=== PATIENT | male | born 1995 | race African-American/Black ===

== ENCOUNTER 2019-11-14 08:22 | Outpatient (CLI) | payer OTHER, SELFPAY ==
--- NOTE | ~2019-11-14 | XR_ITS ---
EXAMINATION: XR small bowel follow through DATE: 11/14/2019 11:15 INDICATION: Crohn's disease with infraumbilical discomfort. TECHNIQUE: Charge Auditor radiograph(s) of the abdomen was/were obtained. Oral contrast was administered, and sequential radiographs of the abdomen were obtained until oral contrast was noted to be in the proxi mal colon. Spot fluoroscopic images of the small bowel were obtained. A total of 12 fluoroscopic imag es and 7 overhead radiographs were obtained. Fluoroscopy exposure time was 0.7 minutes. COMPARISON: None. FINDINGS: Charge Auditor radiograph demonstrates no dilated loops of bowel to suggest obstruction. Transit time from the stomach to proximal colon was approximately 1 hour and 30 minutes. There are 2 short segments of fix ed stenosis of the distal ileum located between approximately 15-25 cm proximal to the ileocecal valv e. There is additional normal narrowing in the distal 10 cm terminal ileum where there is also an irr egular mucosal contour with subtle spiculations of contrast which appear to extend into the submucosa . The location and appearance would be characteristic of given history of Crohn's disease. There is n ormal caliber and mucosal fold pattern throughout the remainder of the more proximal small bowel. No evident sinus tracts or fistulous indications between loops of bowel. IMPRESSION: 1. Nonobstructing mild strictures in the distal ileum with mucosal fissuring at the terminal ileum co nsistent with Crohn's disease. Reviewed, dictated and finalized at location A. IMPRESSION: 1. Nonobstructing mild strictures in the distal ileum with mucosal fissuring at the terminal ileum consistent with Crohn's disease.
== END 2019-11-14 08:23 | disposition home or self-care (01) ==
PROVIDERS: Visit Provider Internal Medicine Gastroenterology
DX: K50.90 Crohn's disease, unspecified, without complications (principal)
CPT/HCPCS: 74250

== ENCOUNTER 2020-02-14 10:24 | Emergency (ER) | payer OTHER, SELFPAY ==
[2020-02-14 10:28] VITALS: BP 138/85; PULSE 108; RESP 20; TEMP 36.5; O2SAT 100
[2020-02-14 10:46] LABS: Basophils Percent Auto 0.3 % (0.2-1.2); Eosinophils Absolute Auto 0.1 K/mm3 (0-0.3); Eosinophils Percent Auto 1.2 % (0-4.4); Hematocrit 33.2 % (42.0-52.0); Hemoglobin 10.1 g/dL (14.0-18.0); Immature Granulocyte Absolute 0.03 K/mm3 (0.00-0.031); Immature Granulocyte Percent A 0.4 % (0-0.5); Lymphocytes Absolute Auto 1.49 K/mm3 (0.9-3.2); Lymphocytes Percent Auto 20.3 % (18.3-44.2); Mean Corpuscular HGB Conc 30.4 g/dl (32-36); Mean Corpuscular Hemoglobin 25.1 pg (26-34); Mean Corpuscular Volume 82.4 fl (80-100); Mean Platelet Volume 9.8 fl (7.4-10.4); Monocytes Absolute Auto 0.9 K/mm3 (0.1-0.6); Monocytes Percent Auto 11.9 % (2.6-8.5); Neutrophils Absolute Auto 4.8 K/mm3 (1.3-6.7); Neutrophils Percent Auto 65.9 % (45.5-73.1); Platelet Count Result 525 k/mm3 (150-375); Red Blood Count 4.03 M/mm3 (4.6-6.20); Red Cell Distribution Width 14.7 % (11.5-14.5); White Blood Count 7.3 K/mm3 (4.5-10.0)
[2020-02-14 10:55] LABS: Alanine Aminotransferase 11 U/L (4-50); Albumin Level 3.6 g/dL (3.5-5.1); Alkaline Phosphatase 53 U/L (38-126); Anion Gap 10.7 mmol/L (7-16); Aspartate Amino Transferase 14 U/L (17-59); Bilirubin,Total 0.4 mg/dL (0.2-1.3); Blood Urea Nitrogen 11 mg/dL (9-20); Calcium 8.8 mg/dL (8.4-10.2); Carbon Dioxide 25 mmol/L (22-30); Chloride 101 mmol/L (98-107); Estimated CRCL calculation 77 ml/min; Estimated Glomerular Filt Rate > 60; Glucose 111 mg/dL (75-110); Lipase 98 U/L (23-300); Potassium 3.7 mmol/L (3.4-5.0); Sodium 133 mmol/L (137-145)
[2020-02-14 11:27] LABS: Add Urine Microscopic? YES; Appearance Urine Clear (Clear); Bacteria Urine Trace /hpf; Bilirubin Urine Negative (Negative); Blood Urine Negative (Negative); Color Urine Yellow (Yellow); Glucose Urine UA Negative (Negative); Ketones Urine Negative (Negative); Leukocyte Esterase Ur Negative LEU/UL (Negative); Mucus Urine Rare /lpf; Nitrate Urine Negative (Negative); Protein Urine Negative (Negative); RBC Urine 0-2 /hpf (0-2); Squamous Epithelial Cell Urine Rare /hpf (Few); Urobilinogen Urine Negative mg/dL (<2.0); WBC Urine 0-3 /hpf
--- NOTE | 2020-02-14 11:46 | ED.ABDPAIN ---
HPI - Abdominal Pain General Chief Complaint: Abdominal Pain <DALI Correa Last Filed: 02/14/20 13:28> Stated Complaint: crohn's flaring up <DALI Correa Last Filed: 02/14/20 13:28> Time Seen by Provider: 02/14/20 11:07 <DALI Correa Last Filed: 02/14/20 13:28> Source: patient <DALI Correa Last Filed: 02/14/20 13:28> Mode of arrival: ambulatory <DALI Correa Last Filed: 02/14/20 13:28> Limitations: no limitations <DALI Correa Last Filed: 02/14/20 13:28> History of Present Illness HPI narrative: Patient is a 24-year-old male who presents to emergency department for evaluation of abdominal pain that is in the periumbilical region and radiates outward that is been present for the last several days has been taking Levsin with some improvement which was a new prescribed medication but notes that it is no longer helping patient notes he had had an episode of emesis a few days ago. . Patient denies any rectal bleeding or melena . Patient on arrival to emergency department is in the room in no distress. Patient with history of Crohn's and is followed by Dr. Martini <DALI Correa Last Filed: 02/14/20 13:28> Related Data Home Medications: Home Medications Medication Instructions Recorded Confirmed hyoscyamine sulfate 0.375 mg 0.375 mg PO Q12H 02/01/20 02/06/20 tablet,extended release,12 hr mesalamine 250 mg 750 mg PO BID cap 02/01/20 02/06/20 capsule,controlled release <DALI Correa Last Filed: 02/14/20 13:28> Allergies/Adverse Reactions: Allergies Allergy/AdvReac Type Severity Reaction Status Date / Time No Known Allergies Allergy Verified 02/14/20 10:27 <DALI Correa Last Filed: 02/14/20 13:28> Review of Systems Review of Systems: All systems reviewed & are unremarkable except as noted in HPI and below <DALI Correa Last Filed: 02/14/20 13:28> PMFSH Past Medical History Medical History: Medical History (Updated 02/14/20 @ 13:27 by Dante Burton PA-C) Anemia Crohn's disease Urinary hesitancy <Dante Burton PA-C - Last Filed: 02/14/20 13:28> Surgical History Surgical History: Surgical History (Updated 02/14/20 @ 11:47 by Dante Burton PA-C) Hx of colonoscopy <Dante Burton PA-C - Last Filed: 02/14/20 13:28> Social History Social History: Social History Smoking status: Never smoker Second hand tobacco smoke exposure: No Alcohol intake: current Substance use: current Substance use type: marijuana Gender identity (if verbalized by the patient): Male <Dante Burton PA-C - Last Filed: 02/14/20 13:28> Exam Narrative: Exam Narrative: GENERAL: Well-appearing, well-nourished, and in no acute distress. HEAD: Normocephalic, atraumatic. EYES: PERRLA and EOMI. ENT: Nares clear, no rhinorrhea or epistaxis. Mucous membranes moist. CHEST: Clear to auscultation. No respiratory distress. No wheezes rales or rhonchi HEART: Regular rate and rhythm. No murmur heard. Normal peripheral pulses. ABDOMEN: Soft, periumbilical tenderness no rebound or guarding, nondistended EXTREMITIES: Normal range of motion. No edema. SKIN: Warm, dry, no rash. NEURO: No focal deficits. Alert and oriented x3. PSYCH: Normal mood and affect. <Dante Burton PA-C - Last Filed: 02/14/20 13:28> Course Course Emergency Course: Patient in the room at this time resting comfortably noting that he is feeling much better with interventions tolerating p.o. intake felt appropriate for outpatient reevaluation and agreeing to follow-up as directed or to return if symptoms worsen or concerns patient is afebrile nontoxic-appearing <Dante Burton PA-C - Last Filed: 02/14/20 13:28> Vital Signs Vital signs: Vital Signs Temperature 97.7 F 02/13
[2020-02-14] MEDS: SODIUM CHLORIDE 0.9% IV 1,000 ML 999 ML IV CONT (12:05)
[2020-02-14] MEDS: FAMOTIDINE 20 MG/2 ML VIAL IV PUSH (12:05)
[2020-02-14] MEDS: HYOSCYAMINE SULFATE 0.125 MG TABLET PO (12:05)
[2020-02-14 13:05] VITALS: BP 117/76; PULSE 92; RESP 16; O2SAT 100
[2020-02-14 13:37] VITALS: BP 170/100; PULSE 83; RESP 16; O2SAT 100
== END 2020-02-14 13:50 | disposition home or self-care (01) ==
PROVIDERS: Emergency Provider General Practice
DX: R10.9 Unspecified abdominal pain (principal); K50.90 Crohn's disease, unspecified, without complications
CPT/HCPCS: 36415; 80053; 81001; 83690; 85025; 96361; 96374; 99284; A9270; J7030

== ENCOUNTER 2020-02-22 13:40 | Inpatient (IN) | payer OTHER, SELFPAY ==
--- NOTE | ~2020-02-22 | CT_ITS ---
EXAMINATION: CT abdomen pelvis w con DATE: 02/22/2020 16:03 INDICATION: Abdominal pain. History of Crohn's disease. TECHNIQUE: Computed tomography (CT) of the abdomen and pelvis was performed with 100 cc Omnipaque 350 intravenous contrast. Automated exposure control and iterative reconstruction technique were employe d. Exam dose: 188.39 mGy-cm total exam DLP. COMPARISON: 11/14/2019 small bowel series FINDINGS: The lung bases are clear. Normal heart size. No pericardial or pleural effusion. There is very little body fat. There is mild ascites. No hepatic, splenic, pancreatic, adrenal or renal space-occupying mass lesion is evident. No urinary tract calculus or hydroureteronephrosis is evident. The urinary bladder is unremarkable. Normal caliber of the abdominal aorta. No intraperitoneal or retroperitoneal or pelvic mass lesion or adenopathy is evident. There is prominent mural thickening and mucosal enhancement of the distal approximately 15 cc of the ileum, consistent with active Crohn's disease. There is proximal prominent small bowel fluid distenti on and scattered air fluid levels. The small bowel measures up to approximately 4.5 cm maximal diamet er. Included skeletal structures are unremarkable. . IMPRESSION: Active Crohn's disease of the distal small bowel with proximal up to 4.5 cm small bowel dilatation, with numerous small bowel fluid distended loops and air-fluid levels Reviewed, dictated and finalized at [facility]. Reviewed, dictated and finalized at location A. IMPRESSION: Active Crohn's disease of the distal small bowel with proximal up to 4.5 cm small bowel dilatation, with numerous small bowel fluid distended loo ps and air-fluid levels
--- NOTE | ~2020-02-22 | XR_ITS ---
XR small bowel follow through DATE: 02/24/2020 14:27 INDICATION: Infraumbilical abdominal pain, especially postprandially TECHNIQUE: Serial images of the abdomen were obtained. Spot images of the terminal ileum. 1.6 minutes fluoroscopy time 12.11 DAP 18 images COMPARISON: 11/14/2019 small bowel follow-through FINDINGS: There is slow transit of contrast material through the small bowel, contrast material reach ing the colon by 6 hours. There are 2 areas of small bowel stricture and mucosal irregularity, one in the distal ileum and the other, following an intervening skip segment, at the terminal ileum. There is mild ileal dilatation p roximal to the distal ileal stricture. IMPRESSION: 2 areas of stricture or mucosal irregularity due to Crohn's disease involving distal ileu m and terminal ileum, with intervening skip segment Mild proximal small bowel dilatation up to approximately 4 cm diameter Reviewed, dictated and finalized at [facility]. Reviewed, dictated and finalized at location A. IMPRESSION: 2 areas of stricture or mucosal irregularity due to Crohn's disease involving distal ileum and terminal ileum, with intervening skip segment Mild proximal small bowel dilatation up to approximately 4 cm diameter
[2020-02-22 13:49] VITALS: BP 130/82; PULSE 106; RESP 20; TEMP 37.4; O2SAT 100
[2020-02-22 14:05] LABS: Basophils Percent Auto 0.2 % (0.2-1.2); Eosinophils Absolute Auto 0.1 K/mm3 (0-0.3); Eosinophils Percent Auto 0.8 % (0-4.4); Hematocrit 33.2 % (42.0-52.0); Immature Granulocyte Absolute 0.05 K/mm3 (0.00-0.031); Immature Granulocyte Percent A 0.4 % (0-0.5); Lymphocytes Absolute Auto 0.99 K/mm3 (0.9-3.2); Mean Corpuscular HGB Conc 30.1 g/dl (32-36); Mean Corpuscular Hemoglobin 24.3 pg (26-34); Mean Corpuscular Volume 80.6 fl (80-100); Mean Platelet Volume 9.3 fl (7.4-10.4); Monocytes Absolute Auto 0.8 K/mm3 (0.1-0.6); Monocytes Percent Auto 5.9 % (2.6-8.5); Neutrophils Absolute Auto 12.1 K/mm3 (1.3-6.7); Neutrophils Percent Auto 85.7 % (45.5-73.1); Platelet Count Result 618 k/mm3 (150-375); Red Blood Count 4.12 M/mm3 (4.6-6.20); Red Cell Distribution Width 15.3 % (11.5-14.5); White Blood Count 14.1 K/mm3 (4.5-10.0)
[2020-02-22 14:17] LABS: Alanine Aminotransferase 11 U/L (4-50); Albumin Level 3.7 g/dL (3.5-5.1); Alkaline Phosphatase 58 U/L (38-126); Anion Gap 8 mmol/L (8-16); Aspartate Amino Transferase 17 U/L (17-59); Bilirubin,Total 0.2 mg/dL (0.2-1.3); Blood Urea Nitrogen 10 mg/dL (9-20); Calcium 8.8 mg/dL (8.4-10.2); Carbon Dioxide 24 mmol/L (22-30); Chloride 102 mmol/L (98-107); Estimated CRCL calculation 77 ml/min; Estimated Glomerular Filt Rate > 60; Glucose 106 mg/dL (75-110); Lipase 88 U/L (23-300); Potassium 4.1 mmol/L (3.4-5.0); Sodium 134 mmol/L (137-145)
--- NOTE | 2020-02-22 15:13 | ED.ABDPAIN ---
HPI - Abdominal Pain General Chief Complaint: Abdominal Pain Stated Complaint: Abd pain, Crohns disease Time Seen by Provider: 02/22/20 15:07 Source: patient and family History of Present Illness HPI narrative: 24 years old -[place] male history of Crohn's disease been complaining of mid abdominal pain for months. Was seen by Dr. Toney in the last few weeks, scheduled to see him again tomorrow. Patient reports that his pain got worse over the last 24 hours. Patient reports intermittent nausea and vomiting, denies any fever, chills. Patient denies any aggravating or relieving factors. Related Data Home Medications Medication Instructions Recorded Confirmed hyoscyamine sulfate 0.375 mg 0.375 mg PO Q12H 02/01/20 02/06/20 tablet,extended release,12 hr mesalamine 250 mg 750 mg PO BID cap 02/01/20 02/06/20 capsule,controlled release Allergies Allergy/AdvReac Type Severity Reaction Status Date / Time No Known Allergies Allergy Verified 02/14/20 10:27 Review of Systems Review of Systems: Narrative: CONSTITUTIONAL: Denies fever, chills, or sweats. EYES: Denies visual changes, redness, or discharge. ENT: Denies rhinorrhea, congestion, sore throat, or otalgia. CARDIOVASCULAR: Denies chest pain, palpitations, or edema. RESPIRATORY: Denies cough or dyspnea. GASTROINTESTINAL: Denies abdominal pain, nausea, vomiting, or diarrhea. GENITOURINARY: Denies dysuria or hematuria. SKIN: Denies rash or itching. MUSCULOSKELETAL: Denies back pain, joint pain, or myalgia. NEUROLOGIC: Denies headache, numbness, or weakness. PSYCHIATRIC: Denies anxiety or depression. [facility] Past Medical History Medical History Anemia Crohn's disease Urinary hesitancy Surgical History Surgical History Hx of colonoscopy Family History Family History Father Scoliosis Mother Chronic GERD Social History Social History Smoking status: Never smoker Second hand tobacco smoke exposure: No Alcohol intake: current Substance use: current Substance use type: marijuana Gender identity (if verbalized by the patient): Male Exam Narrative: Exam Narrative: General appearance: Well-developed, well-nourished Skin: Normal color Head: Normocephalic, nontraumatic Eyes: Clear conjunctiva ENT: Oropharynx normal, ears normal, nose normal Neck: Supple, nontender Chest and respiratory: Airway patent, no respiratory distress, no accessory muscle use Heart: Regular rate/rhythm Abdomen: Soft, moderate tenderness mid abdomen,, no organomegaly, quiet bowel sounds Vascular: Normal peripheral pulses, normal capillary refill. 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[employer] is normal as tested, no gross motor deficit Course Course Emergency Course: Stable Consultations Consultation #1: DR TONEY Date: 02/22/20 Time: 17:46 Vital Signs Vital signs: Vital Signs Temperature 37.4 C 02/22/20 13:49 Pulse Rate 106 H 02/22/20 13:49 Respiratory Rate 20 02/22/20 13:49 Blood Pressure 130/82 02/22/20 13:49 Pulse Oximetry 100 02/22/20 13:49 Temperature 37.4 C 02/22/20 13:49 Pulse Rate 106 H 02/22/20 13:49 Respiratory Rate 20 02/22/20 13:49 Blood Pressure 130/82 02/22/20 13:49 Pulse Oximetry 100 02/22/20 13:49 MDM - Abdominal Pain MDM Narrative Medical decision making narrative: , History of Crohn's disease, patient does not have any blood in stool, fever or chills. Been having chron
[2020-02-22] MEDS: MORPHINE SULFATE 4 MG/ML INJ IV PUSH ×2 (15:31→22:13)
[2020-02-22] MEDS: SODIUM CHLORIDE 0.9% IV 1,000 ML 999 ML IV CONT (15:31)
[2020-02-22] MEDS: ONDANSETRON INJ 4 MG/2 ML VIAL IV PUSH (15:31)
[2020-02-22 15:37] LABS: Add Urine Microscopic? NO; Appearance Urine Clear (Clear); Bilirubin Urine Negative (Negative); Blood Urine Negative (Negative); Color Urine Straw (Yellow); Glucose Urine UA Negative (Negative); Ketones Urine Negative (Negative); Leukocyte Esterase Ur Negative LEU/UL (Negative); Nitrate Urine Negative (Negative); Protein Urine Negative (Negative); Urobilinogen Urine Negative mg/dL (<2.0)
[2020-02-22] MEDS: methylPREDNISolone SOD SUCC 125 MG VIAL 60 MG IV PUSH (17:41)
[2020-02-22 19:14] VITALS: BP 125/78; PULSE 62; RESP 18; O2SAT 100
--- NOTE | 2020-02-22 19:35 | PC.NURSE ---
This patient, Roman Metzger, was admitted to Medical Room 257-01. Patient/family oriented to hospital policies and general routines including ID bracelet, bed and alarms, visiting hours, pain management, procedures, bathroom and other care routines, personal items, smoking policy, room service/diet, and visiting hours. Valuables list has been completed. Information on how to activate the Rapid Response Team has been discussed. Patient/Family are encouraged to report perceived risks to care and to ask questions if they do not understand what they are told or what they should do.
[2020-02-22] MEDS: SODIUM CHLORIDE 0.9% IV 1,000 ML 125 ML IV CONT (19:44)
[2020-02-22 22:00] VITALS: BP 118/78; PULSE 86; RESP 18; TEMP 36.8; O2SAT 100
[2020-02-22 22:05] VITALS: BMI 15.5
[2020-02-23] VITALS: BP 118/78; PULSE 76; RESP 18; TEMP 36.8; O2SAT 100
[2020-02-23] MEDS: methylPREDNISolone SOD SUCC 40 MG VIAL IV PUSH ×5 (00:02→23:27)
[2020-02-23] MEDS: MORPHINE SULFATE 4 MG/ML INJ IV PUSH (01:18)
--- NOTE | 2020-02-23 02:30 | PM.IMHP ---
H&P: HPI History of Present Illness Date/Time: 02/23/20 02:30 Chief complaint: Adominal pain. Narrative: Roman Metzger is a very pleasant 24-year-old male diagnosed with Crohn's disease who presented to the emergency department yesterday afternoon with complaints of abdominal pain. Since about September of this year he has been having problems with his Crohn's, with increasing pain over the past 24 hours or so. He describes a severe, squeezing pain in the right mid and lower quadrant which seems to be made worse with movement and eating. Hyoscyamine has helped a little bit with his abdominal discomfort, and marijuana occasionally helps as well. Unfortunately, he has been suffering from insomnia and urinary hesitancy and on occasion retention since starting the hyoscyamine. In any event, he also has intermittent abdominal bloating, frequent nausea, and occasional emesis. It is to the point where he is almost afraid to eat as it causes pain, and he has lost 10 to 15 pounds in the last 2 months or so. He has frequent diarrhea, worse over the past 2 weeks, with his last bowel movement being at approximately 09:00 on Thursday morning. He has not been passing much gas but he has been feeling his stomach rumbling in he is hungry at the time my evaluation. Also of note, he has been having night sweats and has had intermittent fevers for the past 1 week, with a T-max of 102.3? last Thursday. He has not noticed any blood or mucus in the stool. No hematemesis. He denies chest pain and shortness of breath. Review of Systems Review of Systems: Narrative: Twelve systems were reviewed with pertinent positives and negatives as per HPI. He does suffer from seasonal allergies, and has had rhinorrhea, postnasal drip, and slight cough. No shortness of breath. He denies sick contacts and exposure to those positive for COVID-19. He has been very diligent about hand hygiene and wearing a mask, and he rarely leaves his home or has a visitors. Several weeks ago he had hemorrhoidal pain, which improved with Sitz baths and topical creams. He denies dysuria and hematuria but again reports hesitancy in feelings of incomplete bladder evacuation since starting hyoscyamine. Except as documented, all other systems were reviewed and are negative. PMFSH Past Medical History Medical History (Updated 02/23/20 @ 03:16 by Frances Rich PA-C) Chronic anemia Crohn's disease (~04/2012) Surgical History Surgical History (Updated 02/23/20 @ 03:12 by Frances Rich PA-C) History of colonoscopy Family History Family History Father Scoliosis Mother Chronic GERD Grandparent Diabetes mellitus Social History Social History (Updated 02/23/20 @ 03:13 by Frances Rich PA-C) Social History: The patient is originally from [place], [place]. 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 He does not use tobacco products. He drinks alcohol rarely, and in moderation. He does smoke marijuana, which helps with his abdominal pain. He does meets his mother, Sandrine Metzger, as his surrogate decision maker and he wishes to be a full code. Spiritual care concerns: No Meds Home Medications and Allergies Home Medications Medication Instructions Recorded Confirmed Type hyoscyamine sulfate 0.375 mg 0.375 mg PO Q12H 02/01/20 02/22/20 History tablet,extended release,12 hr mesalamine 250 mg 750 mg PO BID cap 02/01/20 02/22/20 History capsule,controlled release famotidine [Pepcid] 20 mg PO BID #7 tablet 02/14/20 02/22/20 Rx Allergies Allergy/AdvReac Type Severity Reaction Status Date / Time No Known Allergies Allergy Verified 02/14/20 10:27 Vital Signs Vital Signs - 24 hr 02/22/20 13:49 02/22/20 19:14 02/22/20 22:00 Temperature 99.3 F 98.2 F Pulse Rate 106 H 62 86 Respiratory Rate 20 18 18 Blood Pressure 130/82 125/78 118/78 Pulse Oximetry 100 100 100 02/23/20 00:0
[2020-02-23] MEDS: SODIUM CHLORIDE 0.9% IV 1,000 ML 125 ML IV CONT ×3 (03:40→23:27)
[2020-02-23 05:47] VITALS: BP 111/58; PULSE 94; RESP 18; TEMP 36.4; O2SAT 99
[2020-02-23 05:51] LABS: Basophils Percent Auto 0.1 % (0.2-1.2); Hemoglobin 9.7 g/dL (14.0-18.0); Immature Granulocyte Absolute 0.04 K/mm3 (0.00-0.031); Immature Granulocyte Percent A 0.5 % (0-0.5); Lymphocytes Absolute Auto 0.71 K/mm3 (0.9-3.2); Lymphocytes Percent Auto 8.4 % (18.3-44.2); Mean Corpuscular HGB Conc 30.3 g/dl (32-36); Mean Corpuscular Volume 79.2 fl (80-100); Mean Platelet Volume 8.9 fl (7.4-10.4); Monocytes Absolute Auto 0.1 K/mm3 (0.1-0.6); Monocytes Percent Auto 0.9 % (2.6-8.5); Neutrophils Absolute Auto 7.6 K/mm3 (1.3-6.7); Neutrophils Percent Auto 90.1 % (45.5-73.1); Platelet Count Result 565 k/mm3 (150-375); Red Blood Count 4.04 M/mm3 (4.6-6.20); Red Cell Distribution Width 15.2 % (11.5-14.5); White Blood Count 8.4 K/mm3 (4.5-10.0)
[2020-02-23 06:01] LABS: Anion Gap 9 mmol/L (8-16); Blood Urea Nitrogen 9 mg/dL (9-20); Calcium 8.7 mg/dL (8.4-10.2); Carbon Dioxide 24 mmol/L (22-30); Chloride 102 mmol/L (98-107); Estimated CRCL calculation 77 ml/min; Estimated Glomerular Filt Rate > 60; Glucose 117 mg/dL (75-110); Potassium 4.5 mmol/L (3.4-5.0); Sodium 135 mmol/L (137-145)
[2020-02-23 07:48] LABS: Iron 17 ug/dL (49-181)
[2020-02-23 07:58] LABS: Percent Iron Saturation 8 % (20-50)
[2020-02-23] MEDS: levoFLOXacin 500 MG/D5W 100 ML 500 MG/100 ML BAG 100 MG IVPB (10:20)
--- NOTE | 2020-02-23 10:41 | WPDGICN ---
Assessment and Plan Assessment and plan (1) Crohn's disease: Qualifiers: Digestive disease complication type: without complication Gastrointestinal tract location: small intestine Qualified Code(s): K50.00 - Crohn's disease of small intestine without complications Code(s): K50.90 - Crohn's disease, unspecified, without complications Status: Acute Assessment and Plan: Patient known to have Crohn's disease small-bowel disease is evident. CT scan recent small bowel ferritin series confirms several strictures in skip areas within the small bowel dilated small bowel consistent with partial obstruction. Plan is for bowel rest with liquid diet. IV Solu-Medrol supplemented with Pentasa mesalamine and now antibiotic therapy is suggested initially. Follow-up small-bowel follow-through will be obtained tomorrow. (2) MRAKUS (iron deficiency anemia): Code(s): D50.9 - Iron deficiency anemia, unspecified Status: Acute Assessment and Plan: Patient has microcytic anemia that has worsened since July of this year. Likely related to inflammation and chronic blood loss from his Crohn's disease. Plan is to check iron studies and iron replacement. GI Consult Note Consult date/time: 02/23/20 10:41 HPI: Roman Metzger is a 24 year old male Seen in evaluation at the request of the emergency room. Patient now on the hospitalist service. Patient with an underlying history of Crohn's disease. Diagnosed several years ago in [facility]. He has been maintained on Pentasa. 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 Sometimes worse after eating. Pain is been rather persistent. A recent upper GI and small-bowel follow-through revealed a series of strictures in the small bowel. Last evening in the emergency room a CT scan suggested similar findings with dilated loops of small bowel. Patient's recent medications include Pentasa supplemented with dicyclomine antispasmodic agent. He denies any weight loss. Although he has always been thin. He has had no bleeding. Bowel habits have essentially been regular. Family history is noncontributory Review of Systems Review of Systems: All systems reviewed & are unremarkable except as noted in HPI and below PMFSH Past Medical History Medical History Chronic anemia Crohn's disease (~04/2012) Surgical History Surgical History History of colonoscopy Family History Family History Father Scoliosis Mother Chronic GERD Grandparent Diabetes mellitus Social History Social History Social History: The patient is originally from [place], [place]. 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 He does not use tobacco products. He drinks alcohol rarely, and in moderation. He does smoke marijuana, which helps with his abdominal pain. He does meets his mother, Sandrine Metzger, as his surrogate decision maker and he wishes to be a full code. Spiritual care concerns: No Meds Home Medications and Allergies Home Medications Medication Instructions Recorded Confirmed Type hyoscyamine sulfate 0.375 mg 0.375 mg PO Q12H 02/01/20 02/22/20 History tablet,extended release,12 hr mesalamine 250 mg 750 mg PO BID cap 02/01/20 02/22/20 History capsule,controlled release famotidine [Pepcid] 20 mg PO BID #7 tablet 02/14/20 02/22/20 Rx Allergies Allergy/AdvReac Type Severity Reaction Status Date / Time No Known Allergies Allergy Verified 02/14/20 10:27 Vital Signs Vital Signs - 24 hr 02/22/20 13:49 02/22/20 19:14 02/22/20 22:00 Temperature 99.3 F 98.2 F Pulse Rate 106 H 62 86 Respiratory Rate 20 18 18 Blood Pressure 130/82 125/78 118/78 Pulse Ox
[2020-02-23] MEDS: ONDANSETRON INJ 4 MG/2 ML VIAL IV PUSH ×2 (12:11→21:06)
[2020-02-23] MEDS: metroNIDAZOLE 250MG/ISO 50 ML 250 MG/50 ML BAG 50 MG IVPB ×3 (12:56→23:28)
[2020-02-23 14:00] VITALS: BP 130/66; PULSE 74; RESP 21; TEMP 35.8; O2SAT 100
[2020-02-23 14:08] LABS: Glucose Point of Care 98 (65-105)
--- NOTE | 2020-02-23 15:07 | PM.IMPN ---
Progress Note: A&P Assessment and Plan (1) Terminal ileitis: Code(s): K50.00 - Crohn's disease of small intestine without complications Status: Acute Assessment and Plan: Dilated small bowel with numerous fluid distended loops and air-fluid levels noted on CT. His bloating and nausea has significantly improve thus no need for NG tube at this time. He has been started on steroids and IV fluid rehydration. Antiemetics and analgesics available as needed. Dr. Martini has been consulted and small-bowel follow-through ordered for 02/22 (2) Chronic anemia: Code(s): D64.9 - Anemia, unspecified Status: Acute Assessment and Plan: Hemoglobin and hematocrit appear stable on review of previous labs. and both from iron and TIBC or low consistent with anemia of chronic disease Subjective Date/time seen: 02/23/20 15:07 Interval history: 24-year-old black male with Crohn's disease admitted with abdominal cramping and loose stools. Had grown since 2011 this actually the 1st time he has been hospitalized for it. was having watery stools that has subsided somewhat. No rashes or other symptomatology Exam Narrative: Exam Narrative: blood pressure 130/76 pulse 74 his afebrile TGeneral: thin male in no distress. Weight: 49.3 kilograms. HEENT: PERRL, Sclerae anicteric. Oral mucosa tacky. Oropharynx clear. Neck: Supple. Respiratory: Lungs are clear to auscultation bilaterally. Cardiovascular: Regular rate and rhythm with S1-S2. Gastrointestinal: Abdomen is soft and mildly distended. He is tender to palpation the mid right and lower quadrants. No voluntary guarding or rebound tenderness. Bowel sounds are present and increasing from yesterday Skin: Warm and dry. No rash or lesions on limited exam. Extremities: No cyanosis, clubbing, or edema. Radial and pedal pulses intact. Neurological: Alert. Cranial nerves 2-12 are grossly intact. No gross focal deficits to casual conversation. Psychiatric: Pleasant and cooperative with normal mood and affect. Judgment and insight intact. Objective Data Vital Signs Vital Signs: Vital Signs - 24 hr 02/22/20 19:14 02/22/20 22:00 02/23/20 00:00 Temperature 36.8 C 36.8 C Pulse Rate 62 86 76 Respiratory Rate 18 18 18 Blood Pressure 125/78 118/78 118/78 Pulse Oximetry 100 100 100 02/23/20 05:47 02/23/20 14:00 Temperature 36.4 C L 35.8 C L Pulse Rate 94 74 Respiratory Rate 18 21 H Blood Pressure 111/58 L 130/66 Pulse Oximetry 99 100 Intake/Output Intake/Output: Intake & Output 02/20/20 02/21/20 02/22/20 02/23/20 23:59 23:59 23:59 23:59 Intake Total 1000 2950 Output Total 1100 Balance 1000 1850 Meds/Results Medications: Active Medications Generic Name Dose Route Start Last Admin Trade Name Freq PRN Reason Stop Dose Admin Hydromorphone HCl 0.5 mg 02/23/20 03:03 02/23/20 13:00 Dilaudid Inj IV PUSH 0.5 mg Q3H PRN Administration Pain Rated 7-10 Acetaminophen 1,000 mg in 100 mls @ 400 mls/hr 02/22/20 17:34 02/23/20 14:13 Ofirmev 1,000 Mg Ivpb IVPB 02/23/20 17:35 400 mls/hr Q6H PRN Administration Mild Pain (1-3) or Fever Sodium Chloride 1,000 mls @ 80 mls/hr 02/22/20 17:35 02/23/20 12:11 Normal Saline Iv IV CONT 125 mls/hr .[id number] BRYANT Administration Levofloxacin/Dextrose 500 mg in 100 mls @ 100 mls/hr 02/23/20 10:30 02/23/20 11:20 Levaquin 500 Mg/D5w 100 Ml IVPB Infused QAM BRYANT Infusion Metronidazole 250 mg in 50 mls @ 50 mls/hr 02/23/20 11:00 02/23/20 13:56 Flagyl 250 Mg/Iso Soln 50 Ml IVPB Infused Q6HR BRYANT Infusion Methylprednisolone Sodium Succinate 40 mg 02/23/20 00:00 02/23/20 12:15 Solu-Medrol IV PUSH 40 mg Q6HR BRYANT Administration Ondansetron HCl 4 mg 02/23/20 11:32 02/23/20 12:11 Zofran Inj IV PUSH
[2020-02-23 22:00] VITALS: BP 112/70; PULSE 77; RESP 18; TEMP 36.3; O2SAT 100
[2020-02-24] MEDS: metroNIDAZOLE 250MG/ISO 50 ML 250 MG/50 ML BAG 50 MG IVPB ×4 (05:26→23:24)
[2020-02-24] MEDS: methylPREDNISolone SOD SUCC 40 MG VIAL IV PUSH ×4 (05:30→23:24)
[2020-02-24] MEDS: ONDANSETRON INJ 4 MG/2 ML VIAL IV PUSH ×2 (05:30→09:30)
[2020-02-24 05:45] VITALS: BP 112/63; PULSE 79; RESP 18; TEMP 36.1; O2SAT 100
--- NOTE | 2020-02-24 07:42 | PC.NURSE ---
Patient off floor for SBFT. IV infusing.
--- NOTE | 2020-02-24 08:55 | PC.NURSE ---
Patient return from radiology per wheelchair.
[2020-02-24] MEDS: SODIUM CHLORIDE 0.9% IV 1,000 ML 125 ML IV CONT (09:08)
[2020-02-24] MEDS: levoFLOXacin 500 MG/D5W 100 ML 500 MG/100 ML BAG 100 MG IVPB (09:12)
[2020-02-24 10:46] VITALS: BMI 15.5
--- NOTE | 2020-02-24 10:48 | WPDGIPROGNO ---
Progress Note: A&P Additional Plan Patient alert and comfortable this morning. He denies any additional emesis. Denies significant abdominal pain at present. Tolerating liquid diet. Physical exam reveals patient to be alert. Vital signs stable. HEENT exam reveals him to be anicteric. Lungs are clear. Heart without murmur. Abdomen is soft scaphoid bowel sounds are present nontender with no masses noted. Labs reveal iron 17 TIBC 225 ferritin 367 consistent with anemia of chronic disease. Impression 1. Crohn's disease. 2. Small-bowel strictures. 3. Anemia of chronic disease. Plan is for small bowel series today. Otherwise continue liquid diet. Patient to be on IV steroids. Consider adding Humira or Remicade as an outpatient. Pentasa is on hold until is certain he can tolerate diet.TPMT level will be obtained (as he may require Imuran). Subjective Date/time seen: 02/24/20 10:48 Objective Data Vital Signs Vital Signs: Vital Signs - 24 hr 02/23/20 14:00 02/23/20 22:00 02/24/20 05:45 Temperature 96.5 F L 97.3 F L 97 F L Pulse Rate 74 77 79 Respiratory Rate 21 H 18 18 Blood Pressure 130/66 112/70 112/63 Pulse Oximetry 100 100 100 Intake/Output Intake/Output: Intake & Output 02/21/20 02/22/20 02/23/20 02/24/20 23:59 23:59 23:59 23:59 Intake Total 1000 4400 1540 Output Total 1900 1200 Balance 1000 2500 340 Meds/Results Medications: Active Medications Generic Name Dose Route Start Last Admin Trade Name Freq PRN Reason Stop Dose Admin Hydromorphone HCl 0.5 mg 02/23/20 03:03 02/24/20 09:32 Dilaudid Inj IV PUSH 0.5 mg Q3H PRN Administration Pain Rated 7-10 Sodium Chloride 1,000 mls @ 80 mls/hr 02/22/20 17:35 02/24/20 10:15 Normal Saline Iv IV CONT 0 mls/hr .[id number] BRYANT Infusion Levofloxacin/Dextrose 500 mg in 100 mls @ 100 mls/hr 02/23/20 10:30 02/24/20 10:15 Levaquin 500 Mg/D5w 100 Ml IVPB Infused QAM BRYANT Infusion Metronidazole 250 mg in 50 mls @ 50 mls/hr 02/23/20 11:00 02/24/20 05:26 Flagyl 250 Mg/Iso Soln 50 Ml IVPB 50 mls/hr Q6HR BRYANT Administration Methylprednisolone Sodium Succinate 40 mg 02/23/20 00:00 02/24/20 05:30 Solu-Medrol IV PUSH 40 mg Q6HR BRYANT Administration Ondansetron HCl 4 mg 02/24/20 08:57 02/24/20 09:30 Zofran Inj IV PUSH 4 mg Q4H PRN Administration Nausea And Vomiting Radiology Results: ITS Impressions Abdomen/Pelvis CT 02/22/20 16:06 IMPRESSION: Active Crohn's disease of the distal small bowel with proximal up to 4.5 cm small bowel dilatation, with numerous small bowel fluid distended loops and air-fluid levels Labs Labs: Laboratory Results - last 24 hr 02/23/20 14:05 POC Capillary Glucose 98
--- NOTE | 2020-02-24 11:17 | PCNSR ---
On 02/24/20, the student, Lion Block, provided care and completed [facility]. I have reviewed the student's documentation and agree with the findings.
--- NOTE | 2020-02-24 13:36 | PM.IMPN ---
Progress Note: A&P Assessment and Plan (1) Terminal ileitis: Code(s): K50.00 - Crohn's disease of small intestine without complications Status: Acute Assessment and Plan: Dilated small bowel with numerous fluid distended loops and air-fluid levels noted on CT. His bloating and nausea has significantly improve thus no need for NG tube at this time. He was started on steroids and IV fluid rehydration. Antiemetics and analgesics available as needed. Dr. Martini is following and small-bowel follow-through today (2) Chronic anemia: Code(s): D64.9 - Anemia, unspecified Status: Acute Assessment and Plan: Hemoglobin and hematocrit appear stable on review of previous labs. and both iron and TIBC are low consistent with anemia of chronic disease Subjective Date/time seen: 02/24/20 13:36 Interval history: Date of visit 02/23. 24-year-old black male with Crohn's disease admitted with abdominal cramping and loose stools. Has had crohn's since 2011, this actually the 1st time he has been hospitalized for it. was having watery stools that has subsided . No BMs last 24 hours. cramping better. No rashes or other symptomatology Hungry and wants to advance diet Exam Narrative: Exam Narrative: blood pressure 112/64 pulse 80 afebrile TGeneral: thin male in no distress. . HEENT: PERRL, Sclerae anicteric. Neck: Supple. Respiratory: Lungs are clear to auscultation bilaterally. Cardiovascular: Regular rate and rhythm with S1-S2. Gastrointestinal: Abdomen is soft and mildly distended. minimal tenderness if any now. No voluntary guarding or rebound tenderness. Bowel sounds are present and increasing from yesterday Skin: Warm and dry. No rash or lesions on limited exam. Extremities: No edema. Radial and pedal pulses intact. Neurological: Alert. . No gross focal deficits . Psychiatric: Pleasant and cooperative with normal mood and affect. Objective Data Vital Signs Vital Signs: Vital Signs - 24 hr 02/23/20 14:00 02/23/20 22:00 02/24/20 05:45 Temperature 35.8 C L 36.3 C L 36.1 C L Pulse Rate 74 77 79 Respiratory Rate 21 H 18 18 Blood Pressure 130/66 112/70 112/63 Pulse Oximetry 100 100 100 Intake/Output Intake/Output: Intake & Output 02/21/20 02/22/20 02/23/20 02/24/20 23:59 23:59 23:59 23:59 Intake Total 1000 4400 1640 Output Total 1900 1200 Balance 1000 2500 440 Meds/Results Medications: Active Medications Generic Name Dose Route Start Last Admin Trade Name Freq PRN Reason Stop Dose Admin Hydromorphone HCl 0.5 mg 02/23/20 03:03 02/24/20 09:32 Dilaudid Inj IV PUSH 0.5 mg Q3H PRN Administration Pain Rated 7-10 Sodium Chloride 1,000 mls @ 80 mls/hr 02/22/20 17:35 02/24/20 11:34 Normal Saline Iv IV CONT 80 mls/hr .[id number] BRYANT Infusion Levofloxacin/Dextrose 500 mg in 100 mls @ 100 mls/hr 02/23/20 10:30 02/24/20 10:15 Levaquin 500 Mg/D5w 100 Ml IVPB Infused QAM BRYANT Infusion Metronidazole 250 mg in 50 mls @ 50 mls/hr 02/23/20 11:00 02/24/20 12:33 Flagyl 250 Mg/Iso Soln 50 Ml IVPB Infused Q6HR BRYANT Infusion Methylprednisolone Sodium Succinate 40 mg 02/23/20 00:00 02/24/20 11:33 Solu-Medrol IV PUSH 40 mg Q6HR BRYANT Administration Ondansetron HCl 4 mg 02/24/20 08:57 02/24/20 09:30 Zofran Inj IV PUSH 4 mg Q4H PRN Administration Nausea And Vomiting Radiology Results: ITS Impressions Abdomen/Pelvis CT 02/22/20 16:06 IMPRESSION: Active Crohn's disease of the distal small bowel with proximal up to 4.5 cm small bowel dilatation, with numerous small bowel fluid distended loops and air-fluid levels Labs Labs: Laboratory Results - last 24 hr 02/23/20 14:05 POC Capillary Glucose 98 Quality VTE Prophylaxis VTE prophylaxis: mech
[2020-02-24 14:00] VITALS: BP 107/66; PULSE 55; RESP 17; TEMP 36.8; O2SAT 99
[2020-02-24 14:30] VITALS: BP 130/70; PULSE 74; RESP 16; TEMP 36.3; O2SAT 99
[2020-02-24 22:00] VITALS: BP 118/73; PULSE 72; RESP 16; TEMP 36.6; O2SAT 100
[2020-02-24] MEDS: SODIUM CHLORIDE 0.9% IV 1,000 ML 80 ML IV CONT (22:23)
[2020-02-25] MEDS: ONDANSETRON INJ 4 MG/2 ML VIAL IV PUSH (04:41)
[2020-02-25] MEDS: methylPREDNISolone SOD SUCC 40 MG VIAL IV PUSH ×2 (05:21→12:15)
[2020-02-25] MEDS: metroNIDAZOLE 250MG/ISO 50 ML 250 MG/50 ML BAG 50 MG IVPB ×2 (05:21→11:45)
[2020-02-25 06:00] VITALS: BP 133/76; PULSE 60; RESP 16; TEMP 36.2; O2SAT 100
[2020-02-25 06:22] LABS: Basophils Percent Auto 0.2 % (0.2-1.2); Hematocrit 28.4 % (42.0-52.0); Hemoglobin 8.4 g/dL (14.0-18.0); Immature Granulocyte Absolute 0.21 K/mm3 (0.00-0.031); Immature Granulocyte Percent A 4.3 % (0-0.5); Lymphocytes Absolute Auto 0.58 K/mm3 (0.9-3.2); Lymphocytes Percent Auto 11.9 % (18.3-44.2); Mean Corpuscular HGB Conc 29.6 g/dl (32-36); Mean Corpuscular Hemoglobin 24.1 pg (26-34); Mean Corpuscular Volume 81.6 fl (80-100); Mean Platelet Volume 9.6 fl (7.4-10.4); Monocytes Absolute Auto 0.3 K/mm3 (0.1-0.6); Monocytes Percent Auto 5.3 % (2.6-8.5); Neutrophils Absolute Auto 3.8 K/mm3 (1.3-6.7); Neutrophils Percent Auto 78.3 % (45.5-73.1); Platelet Count Result 519 k/mm3 (150-375); Red Blood Count 3.48 M/mm3 (4.6-6.20); Red Cell Distribution Width 15.6 % (11.5-14.5); White Blood Count 4.9 K/mm3 (4.5-10.0)
[2020-02-25 06:24] LABS: Anion Gap 3 mmol/L (8-16); Blood Urea Nitrogen 13 mg/dL (9-20); Calcium 8.2 mg/dL (8.4-10.2); Carbon Dioxide 27 mmol/L (22-30); Chloride 104 mmol/L (98-107); Estimated CRCL calculation 86 ml/min; Estimated Glomerular Filt Rate > 60; Glucose 109 mg/dL (75-110); Potassium 4.1 mmol/L (3.4-5.0); Sodium 134 mmol/L (137-145)
[2020-02-25] MEDS: levoFLOXacin 500 MG/D5W 100 ML 500 MG/100 ML BAG 100 MG IVPB (08:44)
--- NOTE | 2020-02-25 11:13 | WPDGIPROGNO ---
Progress Note: A&P Assessment and Plan (1) Crohn's disease: Qualifiers: Digestive disease complication type: without complication Gastrointestinal tract location: small intestine Qualified Code(s): K50.00 - Crohn's disease of small intestine without complications Code(s): K50.90 - Crohn's disease, unspecified, without complications Status: Acute Assessment and Plan: involving small bowel, SBFT reviewed consistent with same findings with 2 areas of stricture or mucosal irregularity due to Crohn's disease involving distal ileum and terminal ileum, with intervening skip segment will advance diet, if able to tolerate probably tomorrow he can go home with slow prednisone taper and then follow up with Dr Martini to discuss initiation of biologics (either remicade or humira) he is also on antibiotics he is back to baseline. (2) Terminal ileitis: Code(s): K50.00 - Crohn's disease of small intestine without complications Status: Acute (3) MARKUS (iron deficiency anemia): Code(s): D50.9 - Iron deficiency anemia, unspecified Status: Acute Assessment and Plan: chronic, monitor. Subjective Date/time seen: 02/25/20 11:13 Interval history: I am covering for Dr Martini. he is feeling better now with iv steroids, denies any nausea and no abdominal pain. Still no BM but has tolerated liquid diet. Family member is here and patient asking when he could go home. Review of Systems Review of Systems: All systems reviewed & are unremarkable except as noted in HPI and below Exam Const: General: comfortable and no acute distress HENMT: General nose exam: Normal nares present Eyes: General: appearance normal, both eyes and all related structures Neck: Neck: no JVD Resp: Auscultation: clear to auscultation bilaterally Cardio: Rate: regular rate Rhythm: regular rhythm GI: Inspection: non-distended GI Palp: Yes Soft to palpation Skin: General skin exam: normal color Neuro: General: gait normal Speech: normal speech Extrem: General: normal to inspection Psych: Mental Status: mental status grossly normal Objective Data Vital Signs Vital Signs: Vital Signs - 24 hr 02/24/20 14:00 02/24/20 14:30 02/24/20 22:00 Temperature 98.2 F 97.4 F L 97.9 F Pulse Rate 55 L 74 72 Respiratory Rate 17 16 16 Blood Pressure 107/66 130/70 118/73 Pulse Oximetry 99 99 100 02/25/20 06:00 Temperature 97.2 F L Pulse Rate 60 Respiratory Rate 16 Blood Pressure 133/76 Pulse Oximetry 100 Intake/Output Intake/Output: Intake & Output 02/22/20 02/23/20 02/24/20 02/25/20 23:59 23:59 23:59 23:59 Intake Total 1000 4400 3240 1014 Output Total 1900 1400 900 Balance 1000 2500 1840 114 Meds/Results Medications: Active Medications Generic Name Dose Route Start Last Admin Trade Name Freq PRN Reason Stop Dose Admin Hydromorphone HCl 0.5 mg 02/23/20 03:03 02/25/20 04:42 Dilaudid Inj IV PUSH 0.5 mg Q3H PRN Administration Pain Rated 7-10 Sodium Chloride 1,000 mls @ 80 mls/hr 02/22/20 17:35 02/24/20 22:23 Normal Saline Iv IV CONT 80 mls/hr .[id number] BRYANT Administration Levofloxacin/Dextrose 500 mg in 100 mls @ 100 mls/hr 02/23/20 10:30 02/25/20 09:44 Levaquin 500 Mg/D5w 100 Ml IVPB Infused QAM BRYANT Infusion Metronidazole 250 mg in 50 mls @ 50 mls/hr 02/23/20 11:00 02/25/20 06:21 Flagyl 250 Mg/Iso Soln 50 Ml IVPB Infused Q6HR BRYANT Infusion Methylprednisolone Sodium Succinate 40 mg 02/23/20 00:00 02/25/20 05:21 Solu-Medrol IV PUSH 40 mg Q6HR BRYANT Administration Ondansetron HCl 4 mg 02/24/20 08:57 02/25/20 04:41 Zofran Inj IV PUSH 4 mg Q4H PRN Administration Nausea And Vomiting Radiology Results: ITS Impressions Abdomen/Pelvis CT 02/22/20 16:06 IMPRESSION: Active Crohn's disease of the distal small bowel with proximal up to 4.5 cm small bowel dilatation, with numerous small bowel fluid distended loops and a
--- NOTE | 2020-02-25 12:20 | PC.NURSE ---
Per Dr. Beckwith, if patient tolerates soft diet he may be discharged home on prednisone taper. He will need to schedule follow up appointment with Dr. Martini.
--- NOTE | 2020-03-01 11:00 | P.DS_ITS ---
DS: Admitting Diagnosis Admitting Diagnosis Admitting Diagnosis: Adominal pain. DS: Discharge Diagnosis Discharge Diagnosis (1) Terminal ileitis: Code(s): K50.00 - Crohn's disease of small intestine without complications Status: Acute Assessment and Plan: * Dilated small bowel with numerous fluid distended loops and air-fluid levels noted on CT. His bloating and nausea has significantly improve thus no need for NG tube * He was started on steroids and IV fluid rehydration. . * Dr. Martini is following and small-bowel follow-through revealed partial SBO at ileum. Tolerated mechanical soft diet and sent home with tapering dose of steroids starting at 50mg qd and dropping 10 mg each week. will follow up as outpatient for possible remicade rx (2) Chronic anemia: Code(s): D64.9 - Anemia, unspecified Status: Acute Assessment and Plan: * Hemoglobin and hematocrit appear stable on review of previous labs. and both iron and TIBC are low consistent with anemia of chronic disease DS: Summary Hospital Course Hospital Course: 24-year-old black male with known Crohn's disease admitted with abdominal pain. Put at bowel rest and given IV steroids along with antibiotics. Symptoms improved where he was able to take mechanical soft diet and pain had subsided. Small-bowel follow-through revealed partial obstruction near terminal ileum. he was discharge on tapering doses of steroids starting at 50 mg daily and dropping 10 mg a week.. He will follow-up with for possible Remicade and infusions as an outpatient Time Spent with Patient Time attestation: Total time spent providing and/or coordinating discharge services:35 minutes Exam Narrative: Exam Narrative: condition on discharge blood pressure 130/72 pulse 66 and regular afebrile lungs clear CV regular rate rhythm abdomen soft nontender, bowel sounds normal active taking mechanical soft diet well Discharge Plan Discharge Attending physician on discharge: Sushila,Yuri J. Consulting providers: Andrey Martini ; Frances Rich ; Narinder Loza ; Jd Prasad Discharging Clinician: Yuri Conti Patient Disposition: Home, Self-Care Activity: as tolerated Diet: regular Patient Instructions: Antibiotic Form, Prednisone (By mouth), Tramadol (By mouth), Crohn Disease (DC) Stand Alone Forms: General Discharge Information Follow-up/Referrals: Andrey Martini MD [Physician] - Call for Appointment (Follow up with Dr. Martini. Call his office to schedule appointment.) Discharge Medications: New prednisone 10 mg tablet 10 mg PO DIRECTED Qty: 105 RF: 0 tramadol 50 mg tablet 50 mg PO Q6H PRN (Reason: pain) Qty: 20 RF: 0 Continued hyoscyamine sulfate 0.375 mg tablet extended release 12 hr 0.375 mg PO Q12H RF: 0 Pentasa 250 mg capsule, extended release 750 mg PO BID RF: 0 famotidine [Pepcid] 20 mg tablet 20 mg PO BID Qty: 7 RF: 0 Date of admission: 02/23/20 14:32 Primary Care Provider: Jean Claude Ventura Admitting Provider: Ute Quintanilla Discharge Date/Time: 02/25/20 13:12 Attending physician on admission: Yuri Conti Condition: Stable Quality VTE Prophylaxis VTE prophylaxis: mechanical ordered
[2020-03-04 17:51] LABS: TPMT Activity 15
== END 2020-02-25 13:12 | disposition home or self-care (01) | DRG 387 ==
LOC: ANHED 18:12 → ANH2MED 18:22
PROVIDERS: Emergency Medicine; Internal Medicine Gastroenterology; Physician Assistant; Admitting Provider Family Medicine; Emergency Provider Emergency Medicine; PCP Physician Assistant; Visit Provider Internal Medicine
DX: K50.00 Crohn's disease of small intestine without complications (principal); D50.9 Iron deficiency anemia, unspecified
CPT/HCPCS: 36415; 74177; 74250; 80048; 80053; 81003; 82657; 82728; 83540; 83550; 83690; 83735; 85025; 96361; 96365; 96367; 96374; 96375; 96376; 99285; G0378; J0131; J1170; J1956; J2270; J2405; J2920; J2930; J7030; Q9967

== ENCOUNTER 2020-04-03 10:48 | Outpatient (CLI) | payer OTHER, SELFPAY ==
[2020-04-03 11:17] LABS: Hematocrit 41.5 % (42.0-52.0); Hemoglobin 12.6 g/dL (14.0-18.0); Mean Corpuscular HGB Conc 30.4 g/dl (32-36); Mean Corpuscular Hemoglobin 26.6 pg (26-34); Mean Corpuscular Volume 87.7 fl (80-100); Mean Platelet Volume 9.1 fl (7.4-10.4); Platelet Count Result 336 k/mm3 (150-375); Red Blood Count 4.73 M/mm3 (4.6-6.20); Red Cell Distribution Width 16.4 % (11.5-14.5); White Blood Count 4.9 K/mm3 (4.5-10.0)
[2020-04-03 11:31] LABS: Alanine Aminotransferase 25 U/L (4-50); Albumin Level 4.1 g/dL (3.5-5.1); Alkaline Phosphatase 51 U/L (38-126); Anion Gap 7 mmol/L (8-16); Aspartate Amino Transferase 22 U/L (17-59); Bilirubin,Total 0.3 mg/dL (0.2-1.3); Blood Urea Nitrogen 13 mg/dL (9-20); Calcium 9.7 mg/dL (8.4-10.2); Carbon Dioxide 29 mmol/L (22-30); Chloride 100 mmol/L (98-107); Cholesterol 185 mg/dL (0-200); Estimated Glomerular Filt Rate > 60; Glucose 95 mg/dL (75-110); HDL Direct 55 mg/dL; Potassium 4.5 mmol/L (3.4-5.0); Sodium 136 mmol/L (137-145); Triglycerides 73 mg/dL (<150)
[2020-04-03 11:42] LABS: LDL Cholesterol Direct 99 mg/dL
[2020-04-03 11:59] LABS: Thyroid Stimulating Hormone 0.818 uIU/mL (0.465-4.680)
[2020-04-03 17:47] LABS: Hepatitis B Surface Antigen Negative (Negative)
== END 2020-04-03 10:49 | disposition home or self-care (01) ==
PROVIDERS: Physician Assistant; Visit Provider Internal Medicine Gastroenterology
DX: K50.90 Crohn's disease, unspecified, without complications (principal)
CPT/HCPCS: 36415; 80053; 80061; 84443; 85027; 87340

== ENCOUNTER 2021-05-22 10:31 | Outpatient (CLI) | payer OTHER, SELFPAY ==
[2021-05-25 13:59] LABS: NIL 0.03 IU/mL; Quantiferon TB Plus, 1T NEGATIVE (NEGATIVE)
== END 2021-05-22 10:32 | disposition home or self-care (01) ==
LOC: ANHLAB 10:33
PROVIDERS: PCP Physician Assistant; Visit Provider Internal Medicine Gastroenterology
DX: K50.00 Crohn's disease of small intestine without complications (principal)
CPT/HCPCS: 36415; 86480

== ENCOUNTER 2021-06-11 07:24 | Inpatient (IN) | payer OTHER, SELFPAY ==
--- NOTE | ~2021-06-11 | XR_ITS ---
EXAMINATION: XR small bowel follow through EXAM DATE: 06/12/2021 11:21 INDICATION: Crohn's disease, small bowel strictures. TECHNIQUE: [facility] Intern[employer] radiograph was acquired. Barium was administered for small bowel exam performed by radiologist Alex Childs M.D.. Spot images of the terminal ileum were acquired. Pulsed dose reductio n fluoroscopy was used with fluoroscopic time of 0.1 minutes. The DAP for this procedure was 12.2 Gy cm2. A total of 16 images obtained for the exam. Comparison is made to prior examination from 020. FINDINGS: On the 15 minute image contrast seen within the jejunum and part of the ileum, with carlos l fold pattern. On the later images, loops of ileum opacifies which have absence of normal ileal muco richard pattern. Contrast reached the colon between 1.5 and 2 hours which is a normal transit time. The t erminal ileum has a straightened rigid appearance consistent with Crohn's disease. IMPRESSION: Abnormal ileum, terminal ileum consistent with Crohn's disease. Normal transit time 1.5- 2 hours. Reviewed, dictated and finalized at location A. RIAL CONTROL SPECIALIST IMPRESSION: Abnormal ileum, terminal ileum consistent with Crohn's disease. No rmal transit time 1.5-2 hours.
--- NOTE | ~2021-06-11 | CT_ITS ---
EXAMINATION: CT abdomen pelvis w con DATE: 06/11/2021 09:34 INDICATION: Abdominal pain TECHNIQUE: Computed tomography (CT) of the abdomen and pelvis was performed with 100 mL Omnipaque-350 intravenous contrast. Automated exposure control and iterative reconstruction technique were employe d. The dose-length product was 217.94 mGy-cm. COMPARISON: 02/22/2020 FINDINGS: Lung bases are clear. Heart size is normal. No pericardial or pleural effusion. Focal hepatic steatos is ligamentum teres. Liver, spleen, pancreas, bilateral adrenal glands and kidneys are normal. Normal retrocecal appendix. Fluid throughout the colon consistent with diarrhea. No bowel obstruction. Prom inent enhancing wall thickening along an approximately 20 cm length of distal ileum sparing the 10 cm proximal to the ileocecal valve. There is approximately 1.8 x 1.2 x 1.8 cm peripherally enhancing fl uid collection along the posterior inferior margin of the affected small bowel which could represent a small abscess or diverticulum. There is additional asymmetric wall thickening along the distal sigm oid colon were closely approaches the affected segment of ileum. There is a small focus of gas periph eral to the enhancing mucosa in the region of the sigmoid wall thickening. Findings suggest a develop ing enterocolonic fistula. Small amount of ascites in the deep pelvis. No free intraperitoneal gas or larger drainable abscess. Bladder is normal. Surgical clip in the anterior right hemipelvis. No path ologically enlarged abdominal or pelvic lymphadenopathy. Bones are unremarkable. IMPRESSION: 1. Segmental enterocolitis consistent with acute flare of reported Crohn's disease. This involves a s egment of distal ileum and a short segment of the immediately adjacent sigmoid colon with very small abscesses versus diverticulum along the affected loop of ileum as well as a possible developing enter ocolic fistula. Reviewed, dictated and finalized at location A. RAL O[employer] PROCESSING LABOURER IMPRESSION: 1. Segmental enterocolitis consistent with acute flare of reported Crohn's dise ase. This involves a segment of distal ileum and a short segment of the immedia tely adjacent sigmoid colon with very small abscesses versus diverticulum along the affected loop of ileum as well as a possible developing enterocolic fistul a.
[2021-06-11 07:37] VITALS: BP 132/97; PULSE 108; RESP 14; O2SAT 100
[2021-06-11 07:50] LABS: Basophils Percent Auto 0.2 % (0.2-1.2); Eosinophils Percent Auto 0.2 % (0-4.4); Hematocrit 42.6 % (42.0-52.0); Hemoglobin 13.5 g/dL (14.0-18.0); Immature Granulocyte Absolute 0.07 K/mm3 (0.00-0.031); Immature Granulocyte Percent A 0.5 % (0-0.5); Lymphocytes Absolute Auto 2.12 K/mm3 (0.9-3.2); Lymphocytes Percent Auto 16.1 % (18.3-44.2); Mean Corpuscular HGB Conc 31.7 g/dl (32-36); Mean Corpuscular Hemoglobin 28.7 pg (26-34); Mean Corpuscular Volume 90.4 fl (80-100); Mean Platelet Volume 9.9 fl (7.4-10.4); Monocytes Absolute Auto 1.2 K/mm3 (0.1-0.6); Monocytes Percent Auto 9.4 % (2.6-8.5); Neutrophils Absolute Auto 9.7 K/mm3 (1.3-6.7); Neutrophils Percent Auto 73.6 % (45.5-73.1); Platelet Count Result 585 k/mm3 (150-375); Red Blood Count 4.71 M/mm3 (4.6-6.20); Red Cell Distribution Width 12.2 % (11.5-14.5); White Blood Count 13.2 K/mm3 (4.5-10.0)
[2021-06-11 08:00] LABS: Alanine Aminotransferase 15 U/L (4-50); Albumin Level 4.5 g/dL (3.5-5.1); Alkaline Phosphatase 71 U/L (38-126); Anion Gap 14 mmol/L (8-16); Aspartate Amino Transferase 20 U/L (17-59); Bilirubin,Total 0.7 mg/dL (0.2-1.3); Blood Urea Nitrogen 13 mg/dL (9-20); Calcium 9.6 mg/dL (8.4-10.2); Carbon Dioxide 28 mmol/L (22-30); Chloride 96 mmol/L (98-107); Estimated CRCL calculation 85 ml/min; Estimated Glomerular Filt Rate > 60; Glucose 104 mg/dL (65-110); Lipase 59 U/L (23-300); Potassium 3.1 mmol/L (3.4-5.0); Sodium 138 mmol/L (137-145)
[2021-06-11 08:13] LABS: Add Urine Microscopic? YES; Appearance Urine Cloudy (Clear); Bilirubin Urine 1+ (Negative); Blood Urine Negative (Negative); Color Urine Amber (Yellow); Glucose Urine UA Negative (Negative); Ketones Urine Negative (Negative); Leukocyte Esterase Ur Negative LEU/UL (Negative); Mucus Urine Heavy /lpf; Nitrate Urine Negative (Negative); Protein Urine 2+ mg/dL (Negative)
[2021-06-11 08:18] LABS: Specific Grav Ur 1.049 (1.001-1.035)
--- NOTE | 2021-06-11 09:11 | ED.GENADULT ---
HPI - General Adult General Chief complaint: Abdominal Pain Stated complaint: Chron's Flare-up Time Seen by Provider: 06/11/21 08:59 Source: patient History of Present Illness HPI narrative: Patient is a 26 y/o male complaining of generalized abdominal pain since midnight. He describes his pain as sharp and rates it as 10/10. There is no pain radiation, no alleviating or exacerbating factor. He has some vomiting and diarrhea. He has history of Crohn's. He was on Humira but has not been getting it recently due to problem with insurance coverage. Related Data Allergies Allergy/AdvReac Type Severity Reaction Status Date / Time No Known Allergies Allergy Verified 06/05/21 10:12 Review of Systems Constitutional: Constitutional: Denies chills, Denies fever(s), Denies headache(s) and Denies weakness Eyes: Eyes: Denies blurry vision ENT: Denies headache(s) and Denies neck pain Cardiovascular: Cardiovascular: Denies chest pain and Denies dyspnea Respiratory: Respiratory: Denies cough and Denies dyspnea Gastrointestinal: Gastrointestinal: Reports abdominal pain, Reports diarrhea, Reports nausea and Reports vomiting Genitourinary: Genitourinary: Denies hematuria and Denies dysuria Musculoskeletal: Musculoskeletal: Denies back pain and Denies neck pain Neurologic: Denies headache(s) and Denies weakness PMFSH Past Medical History Medical History (Updated 06/11/21 @ 12:13 by Melinda Christensen MD) Chronic anemia Crohn's disease (~04/2012) Surgical History Surgical History History of colonoscopy Family History Family History Father Scoliosis Mother Chronic GERD Grandparent Diabetes mellitus Social History Social History Social History: The patient is originally from [place], [place]. 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 He does not use tobacco products. He drinks alcohol rarely, and in moderation. He does smoke marijuana, which helps with his abdominal pain. He does meets his mother, Sandrine Metzger, as his surrogate decision maker and he wishes to be a full code. Alcohol use details: [facility] Spiritual care concerns: No Exam Const: General: no acute distress and well developed Orientation/consciousness: oriented to person, oriented to place, oriented to time and patient oriented x3 HENMT: Head: normocephalic Ears: external ears normal General nose exam: Normal external nose present Eyes: General: appearance normal, both eyes and all related structures Conjunctivae: conjunctivae normal Neck: Neck: normal visual inspection and full ROM Chest: Chest palpation & inspection: normal inspection of the chest and no tenderness Resp: Effort & Inspection: normal respiratory effort Auscultation: clear to auscultation bilaterally Cardio: Rate: tachycardic Rhythm: regular rhythm GI: GI Palp: Yes abdominal tenderness (left lower abdomen) and Yes Soft to palpation Skin: General skin exam: normal color and turgor normal Neuro: General: oriented to person, oriented to place, oriented to time and patient oriented x3 Cognition (Neuro): normal cognition Extrem: General: normal to inspection, full ROM and no pedal edema Psych: Appearance: grossly normal Mental Status: mental status grossly normal Affect: normal affect Course Consultations Consultation #1: Discussed with Dr. Quintanilla, who agrees to admit. Date: 06/11/21 Time: 10:19 Consultation #2: Discussed with Dr. Martini, who agrees to consult. Date: 06/11/21 Time: 10:58 Vital Signs Vital signs: Vital Signs Pulse Rate 108 H 06/11/21 07:37 Respiratory Rate 14 06/11/21 07:37 Blood Pressure 132/97 H 06/11/21 07:37 Pulse Oximetry 100 06/11/21 07:37 Pulse Rate 108 H 06/11/21 07:37 Respiratory Rate 14 06/11/21 07:37 Blood Pressure 132/97 H 06/11/21 07:3
[2021-06-11 10:11] LABS: CRP 4.8 mg/dL (<1.0)
[2021-06-11] MEDS: metroNIDAZOLE 250 MG TABLET 500 MG PO (10:19)
[2021-06-11 10:21] LABS: Erythrocyte Sedimentation Rate 16 mm/hr (0-20)
[2021-06-11] MEDS: POTASSIUM CHLORIDE 20 MEQ TABLET 40 MEQ PO (12:55)
--- NOTE | 2021-06-11 12:59 | WPDGICN ---
Assessment and Plan Assessment and plan (1) Crohn's disease: Qualifiers: Digestive disease complication type: without complication Gastrointestinal tract location: small intestine Qualified Code(s): K50.00 - Crohn's disease of small intestine without complications Code(s): K50.90 - Crohn's disease, unspecified, without complications Status: Acute Assessment and Plan: Patient known to have Crohn's disease. Several small bowel strictures in skip lesions are evident on most recent small-bowel series last year. Now with increasing abdominal pain likely related to these strictures. He has not been taking Humira for several months. Only on prednisone at a low dose for the last 1 week. Plan to limit diet. And then advanced slowly to a low residue diet. IVC antibiotics will continue as well as IV steroids. Pentasa will be utilized until Humira can be restarted. We may need to add Imuran if Humira is not able to be restarted. (2) Abnormal CT scan: Code(s): R93.89 - Abnormal findings on diagnostic imaging of other specified body structures Status: Acute Assessment and Plan: CT scan raises the question of infetion in the area adjacent to the terminal ileum. A cannot exclude a fistula formation in this area. Plan is for IV antibiotics and steroids. (3) Leukocytosis: Code(s): D72.829 - Elevated white blood cell count, unspecified Status: Acute Assessment and Plan: Elevated white count noted in the ER is very minimal may be related to recent steroid use. Cannot exclude relation to active inflammation or infection. Steroid induced leukocytosis felt most likely. GI Consult Note Consult date/time: 06/11/21 12:59 HPI: Roman Metzger is a 26 year old male I am asked to see because of Crohn's disease. Patient known to have Crohn's disease for several years. Hospitalized 1 year ago at which time small-bowel series confirm several strictures in the small bowel. Patient had been treated with Humira since that time although apparently his medications has elapsed. He has not taken this medication for several months. He began to notice increasing upper abdominal pain. This notice more noticeably after eating. Was seen in my office 1 week ago: Started add on prednisone. States over the last week no change in pain has been noticed. He presented to the ER today where a CT scan suggest inflammation in the ileum with possibility of a colonic abscess , or diverticulum, or fistula. Review of Systems Review of Systems: All systems reviewed & are unremarkable except as noted in HPI and below PMFSH Past Medical History Medical History (Updated 06/11/21 @ 13:01 by Andrey Martini MD) Chronic anemia Crohn's disease (~04/2012) Surgical History Surgical History History of colonoscopy Family History Family History Father Scoliosis Mother Chronic GERD Grandparent Diabetes mellitus Social History Social History Social History: The patient is originally from [place], [place]. 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 He does not use tobacco products. He drinks alcohol rarely, and in moderation. He does smoke marijuana, which helps with his abdominal pain. He does meets his mother, Sandrine Metzger, as his surrogate decision maker and he wishes to be a full code. [facility] use details: [facility] Spiritual care concerns: No Meds Home Medications and Allergies Home Medications Medication Instructions Recorded Confirmed Type adalimumab 40 mg/0.8 mL See Rx Instructions SUBCUT 03/07/21 06/05/21 Rx subcutaneous pen kit .COMPLEX #2 ea prednisone 5 mg tablet 20 mg PO DAILY #100 tablet 06/05/21 06/05/21 Rx Allergies Allergy/AdvReac Type Severity Reaction Status Date / Time No Sunny
--- NOTE | 2021-06-11 13:30 | PM.IMHP ---
H&P: HPI History of Present Illness Date/Time: 06/11/21 13:30 Chief Complaint: Abdominal pain. Narrative: This is a very pleasant 26-year-old male with Crohn's disease who presented to the emergency department earlier today for evaluation of abdominal pain. He is known to myself and the hospitalist service from an admission in February 2020 at which time he was treated for a Crohn's flare. Small-bowel series confirmed several strictures in the small bowel and he has been treated with Humira since that time with good response. Unfortunately he has run into issues with his insurance and he has been off of Humira for several months. Since that time he has had increasing abdominal pain which has been much more severe in the last week and he was started on prednisone per Dr. Martini. He describes a cramping and occasionally sharp shooting pain in the periumbilical region, worse with eating and palpation. Unfortunately he has not had any improvement in his symptoms and his pain is worsening and he has also had several episodes of nausea and vomiting. He also reports passing approximately for small, loose stools a day. He denies fever, chills, and sweats. He has not noticed any blood or mucus in the stool. Review of Systems Review of Systems: Twelve systems were reviewed. No recent cold or flu symptoms. He denies sick contacts. No cough or shortness of breath. No dysuria hematuria. Except as documented, all other systems were reviewed and are negative. [facility] Past Medical History Medical History (Updated 06/11/21 @ 19:42 by Frances Rich PA-C) Anxiety Attention deficit hyperactivity disorder Chronic anemia Crohn's disease (~04/2012) Surgical History Surgical History History of colonoscopy Family History Family History Father Scoliosis Mother Chronic GERD Grandparent Diabetes mellitus Social History Social History (Updated 06/11/21 @ 19:35 by Frances Rich PA-C) Social History: The patient is originally from [place], [place]. 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 He does not use tobacco products. He drinks alcohol rarely, and in moderation. He does smoke marijuana, which helps with his abdominal pain. He does meets his mother, Sandrine Metzger, as his surrogate decision maker and he wishes to be a full code. Meds Home Medications and Allergies Home Medications Medication Instructions Recorded Confirmed Type adalimumab 40 mg/0.8 mL See Rx Instructions SUBCUT 03/07/21 06/05/21 Rx subcutaneous pen kit .COMPLEX #2 ea prednisone 5 mg tablet 20 mg PO DAILY #100 tablet 06/05/21 06/05/21 Rx Allergies Allergy/AdvReac Type Severity Reaction Status Date / Time No Known Allergies Allergy Verified 06/05/21 10:12 Vital Signs Vital Signs - 24 hr 06/11/21 07:37 Pulse Rate 108 H Respiratory Rate 14 Blood Pressure 132/97 H Pulse Oximetry 100 Exam Narrative: General: Well-developed male lying in bed. Nontoxic in appearance. Weight: 61 kg. BMI: 19.9. HEENT: PERRL, EOMI. Sclerae anicteric. Tacky mucous membranes. Oropharynx clear. Neck: Supple. Respiratory: Lungs are clear to auscultation bilaterally. Cardiovascular: Regular rate and rhythm with S1-S2. Gastrointestinal: Abdomen is soft and nondistended with positive bowel sounds. He is tender to palpation in the periumbilical region. No guarding or rebound tenderness. Skin: Warm and dry. No rash or lesions on limited exam. Extremities: No cyanosis, clubbing, or edema. Radial and pedal pulses intact. Neurological: Alert. Cranial nerves 2-12 are grossly intact. No gross focal deficits to casual conversation. Psychiatric: Pleasant and cooperative with normal mood and affect. Judgment and insight intact. H&P: Results Labs Labs: Short CBC 06/11/21 Range/Units 07:40 WBC 13.2 H (4.5-10.0) K/mm3 Hgb 13.5 L
[2021-06-11 15:15] VITALS: BP 123/82; PULSE 87; RESP 16
[2021-06-11] MEDS: MORPHINE SULFATE (*CRX) 2 MG/ML INJ IV PUSH ×2 (15:34→19:33)
[2021-06-11] MEDS: methylPREDNISolone SOD SUCC 40 MG VIAL IV PUSH ×2 (15:34→21:22)
[2021-06-11] MEDS: MESALAMINE 250 MG CAP CR 1000 MG PO ×2 (19:15→21:22)
[2021-06-11 19:16] VITALS: BP 110/63; PULSE 82; RESP 16
--- NOTE | 2021-06-11 19:47 | PC.NURSE ---
called to give report, nurse states that nisa is in with another patient and that she will call me back.
[2021-06-11] MEDS: SODIUM CHLORIDE 0.9% IV 1,000 ML 75 ML IV CONT (21:01)
--- NOTE | 2021-06-11 21:07 | ADMGEN ---
This patient, Roman Metzger, was admitted to Medical Room 249-01. Patient/family oriented to hospital policies and general routines including ID bracelet, bed and alarms, visiting hours, pain management, procedures, bathroom and other care routines, personal items, smoking policy, room service/diet, and visiting hours. Information on how to activate the Rapid Response Team has been discussed. Patient/Family are encouraged to report perceived risks to care and to ask questions if they do not understand what they are told or what they should do.
[2021-06-11 21:17] VITALS: PULSE 82; RESP 16; O2SAT 100
[2021-06-11 21:24] VITALS: BP 118/72; PULSE 75; RESP 18; TEMP 37.1; O2SAT 100; BMI 17.8
[2021-06-11] MEDS: HYDROmorphone HCL INJ (*CRX) 1 MG/ML SYR 0.5 MG IV PUSH (21:38)
[2021-06-12] MEDS: MORPHINE SULFATE (*CRX) 2 MG/ML INJ IV PUSH ×5 (01:22→23:35)
[2021-06-12 03:12] VITALS: BP 111/68; PULSE 80; RESP 18; TEMP 36.1; O2SAT 100
[2021-06-12] MEDS: methylPREDNISolone SOD SUCC 40 MG VIAL IV PUSH ×3 (05:41→21:00)
[2021-06-12 05:52] LABS: Hematocrit 37.2 % (42.0-52.0); Hemoglobin 11.7 g/dL (14.0-18.0); Mean Corpuscular HGB Conc 31.5 g/dl (32-36); Mean Corpuscular Hemoglobin 28.2 pg (26-34); Mean Corpuscular Volume 89.6 fl (80-100); Mean Platelet Volume 9.8 fl (7.4-10.4); Platelet Count Result 499 k/mm3 (150-375); Red Blood Count 4.15 M/mm3 (4.6-6.20); Red Cell Distribution Width 12.1 % (11.5-14.5); White Blood Count 9.9 K/mm3 (4.5-10.0)
[2021-06-12 06:05] LABS: Alanine Aminotransferase 8 U/L (4-50); Albumin Level 3.9 g/dL (3.5-5.1); Alkaline Phosphatase 52 U/L (38-126); Anion Gap 6 mmol/L (8-16); Aspartate Amino Transferase 16 U/L (17-59); Bilirubin,Total 0.6 mg/dL (0.2-1.3); Blood Urea Nitrogen 7 mg/dL (9-20); Calcium 9.2 mg/dL (8.4-10.2); Carbon Dioxide 29 mmol/L (22-30); Chloride 98 mmol/L (98-107); Estimated CRCL calculation 77 ml/min; Estimated Glomerular Filt Rate > 60; Glucose 126 mg/dL (65-110); Magnesium 1.9 mg/dL (1.6-2.3); Potassium 4.6 mmol/L (3.4-5.0); Sodium 133 mmol/L (137-145)
--- NOTE | 2021-06-12 07:34 | WPDGIPROGNO ---
Progress Note: A&P Assessment and Plan (1) Crohn's disease: Qualifiers: Digestive disease complication type: without complication Gastrointestinal tract location: small intestine Qualified Code(s): K50.00 - Crohn's disease of small intestine without complications Code(s): K50.90 - Crohn's disease, unspecified, without complications Status: Acute Assessment and Plan: Patient with established diagnosis of Crohn's disease admitted with what appears to be a flare of disease. He has several skip lesions with small-bowel stricture ring. CT scan suggest he may have shelley ileus abscesses. Fistula cannot be excluded. Plan is for small-bowel series to reassess the degree of stricture ring. Also to establish whether fistulas present. He will currently be maintained on antibiotic therapy. Steroids have been re-enter the mid. He previously was on Humira and this will need to be reestablished. Surgery may be required if abscess is failed to review response to antibiotic therapy however avoiding surgery would be best if possible. Will continue liquid diet until small-bowel series is obtain. (2) Intra-abdominal abscess: Code(s): K65.1 - Peritoneal abscess Status: Acute Assessment and Plan: very small abdomen abscess described on x-ray. Likely related to inflammation of his Crohn's disease. Currently on antibiotic therapy. At present feels surgery may not be necessary for this Subjective Date/time seen: 06/12/21 07:34 Patient reports he is only obtained pain control with morphine. No emesis or vomiting. Apparently has had bowel movements. No fever reported. Review of Systems Review of Systems: All systems reviewed & are unremarkable except as noted in HPI and below Exam Narrative: Physical exam reveals patient be alert comfortable at rest. HEENT exam reveals no icterus. Lungs are clear to auscultation percussion. Heart is without murmur or extra sounds. Abdominal exam bowel sounds are present soft flat nontender with no organomegaly. He did receive a pain injection about 1-2 hours prior to exam. Extremities are without clubbing cyanosis or edema. Objective Data Vital Signs Vital Signs: Vital Signs - 24 hr 06/11/21 07:37 06/11/21 15:15 06/11/21 19:16 Temperature Pulse Rate 108 H 87 82 Respiratory Rate 14 16 16 Blood Pressure 132/97 H 123/82 110/63 Pulse Oximetry 100 06/11/21 21:17 06/11/21 21:24 06/12/21 03:12 Temperature 98.7 F 96.9 F L Pulse Rate 82 75 80 Respiratory Rate 16 18 18 Blood Pressure 118/72 111/68 Pulse Oximetry 100 100 100 Intake/Output Intake/Output: Intake & Output 06/09/21 06/10/21 06/11/21 06/12/21 23:59 23:59 23:59 23:59 Intake Total 50 50 Balance 50 50 Meds/Results Medications: Active Medications Generic Name Dose Route Start Last Admin Trade Name Freq PRN Reason Stop Dose Admin Sodium Chloride 1,000 mls @ 75 mls/hr 06/11/21 10:30 06/11/21 21:01 Normal Saline Iv IV CONT 75 mls/hr .[id number] BRYANT Administration Piperacillin/Tazobactam/Dextrose 3.375 gm in 50 mls @ 100 mls/hr 06/12/21 02:00 06/12/21 01:52 Zosyn 3.375 Gm/D5w 50ml Pm IVPB Infused Q6H BRYANT Infusion Mesalamine 1,000 mg 06/11/21 17:00 06/11/21 21:22 Mesalamine 250 Mg Cap Cr PO 1,000 mg QID BRYANT Administration Methylprednisolone Sodium Succinate 40 mg 06/11/21 14:00 06/12/21 05:41 Methylprednisolone Sod Succ 40 Mg Vial IV PUSH 40 mg Q8HR BRYANT Administration Morphine Sulfate 2 mg 06/11/21 13:35 06/12/21 05:43 Morphine Sulfate (*Crx) 2 Mg/Ml Inj IV PUSH 2 mg Q4H PRN Administration Pain Rated 7-10 Radiology Results: ITS Impressions Abdomen/Pelvis CT 06/11/21 09:39 IMPRESSION: 1. Segmental enterocolitis consistent with acute flare of reported Crohn's disease. This involves a segment of distal ileum and a short segment of the immediately adjacent sigmoid colon with very small abscesses versus
--- NOTE | 2021-06-12 08:43 | PM.IMPN ---
Progress Note: A&P Assessment and Plan (1) Crohn's colitis: Qualifiers: Digestive disease complication type: with abscess Qualified Code(s): K50.114 - Crohn's disease of large intestine with abscess Code(s): K50.10 - Crohn's disease of large intestine without complications Status: Acute Assessment and Plan: continue steroids, antibiotics, and mesalamine per Dr. Martini. no change (2) Abnormal CT scan: Code(s): R93.89 - Abnormal findings on diagnostic imaging of other specified body structures Status: Acute Assessment and Plan: CT scan shows a very small abscess versus diverticulum along the affected loop of ileum as well as possible developing enterocolic fistula. He has been started on Zosyn per antibiotic stewardship recommendations. pending small-bowel follow-through x-ray. (3) Chronic anemia: Code(s): D64.9 - Anemia, unspecified Status: Acute Assessment and Plan: Hemoglobin is stable on review of previous labs. (4) Hypokalemia: Code(s): E87.6 - Hypokalemia Status: Acute Assessment and Plan: Potassium monitor CMP Subjective Date/time seen: 06/12/21 08:43 Interval history: Patient seen and examined Patient feels weak he still have episodes of abdominal pain pending GI follow-through x-ray Patient denies fever headache chest pain shortness of breath I am seeing the patient for enterocolitis Exam Narrative: Alert Chest no wheeze crackles Abdomen positive tenderness no rebound no guarding CVS S1 + S2 Lower extremity edema Objective Data Vital Signs Vital Signs: Vital Signs - 24 hr 06/11/21 15:15 06/11/21 19:16 06/11/21 21:17 Temperature Pulse Rate 87 82 82 Respiratory Rate 16 16 16 Blood Pressure 123/82 110/63 Pulse Oximetry 100 06/11/21 21:24 06/12/21 03:12 Temperature 98.7 F 96.9 F L Pulse Rate 75 80 Respiratory Rate 18 18 Blood Pressure 118/72 111/68 Pulse Oximetry 100 100 Intake/Output Intake/Output: Intake & Output 06/09/21 06/10/21 06/11/21 06/12/21 23:59 23:59 23:59 23:59 Intake Total 50 50 Balance 50 50 Meds/Results Medications: Active Medications Generic Name Dose Route Start Last Admin Trade Name Freq PRN Reason Stop Dose Admin Enoxaparin Sodium 40 mg 06/12/21 09:00 Enoxaparin 40 Mg/0.4 Ml Syringe SUB-Q DAILY BRYANT Sodium Chloride 1,000 mls @ 75 mls/hr 06/11/21 10:30 06/11/21 21:01 Normal Saline Iv IV CONT 75 mls/hr .[id number] BRYANT Administration Piperacillin/Tazobactam/Dextrose 3.375 gm in 50 mls @ 100 mls/hr 06/12/21 02:00 06/12/21 08:14 Zosyn 3.375 Gm/D5w 50ml Pm IVPB 100 mls/hr Q6H BRYANT Administration Mesalamine 1,000 mg 06/11/21 17:00 06/11/21 21:22 Mesalamine 250 Mg Cap Cr PO 1,000 mg QID BRYANT Administration Methylprednisolone Sodium Succinate 40 mg 06/11/21 14:00 06/12/21 05:41 Methylprednisolone Sod Succ 40 Mg Vial IV PUSH 40 mg Q8HR BRYANT Administration Morphine Sulfate 2 mg 06/11/21 13:35 06/12/21 05:43 Morphine Sulfate (*Crx) 2 Mg/Ml Inj IV PUSH 2 mg Q4H PRN Administration Pain Rated 7-10 Radiology Results: ITS Impressions Abdomen/Pelvis CT 06/11/21 09:39 IMPRESSION: 1. Segmental enterocolitis consistent with acute flare of reported Crohn's disease. This involves a segment of distal ileum and a short segment of the immediately adjacent sigmoid colon with very small abscesses versus diverticulum along the affected loop of ileum as well as a possible developing enterocolic fistula. Labs Labs: Laboratory Results - last 24 hr 06/11/21 06/11/21 06/12/21 09:45 09:45 05:24 WBC 9.9 RBC 4.15 L Hgb 11.7 L Hct 37.2 L MCV 89.6 MCH 28.2 MCHC 31.5 L RDW 12.1 Plt Count 499 H MPV 9.8 ESR 16 Sodium Potassium Chloride Carbon Dioxide Anion Gap BUN Creatinine Estim Creat Clear Calc Estimated GFR
[2021-06-12] MEDS: SODIUM CHLORIDE 0.9% IV 1,000 ML 75 ML IV CONT (11:30)
[2021-06-12] MEDS: ENOXAPARIN 40 MG/0.4 ML SYRINGE SUB-Q (11:31)
[2021-06-12] MEDS: MESALAMINE 250 MG CAP CR 1000 MG PO ×3 (11:31→20:13)
[2021-06-12 14:00] VITALS: BP 119/76; PULSE 137; RESP 16; TEMP 36.7; O2SAT 99
[2021-06-12 14:05] VITALS: PULSE 80
[2021-06-12 14:47] VITALS: BMI 17.7
[2021-06-12] MEDS: SIMETHICONE 80 MG TAB.CHEW PO (17:08)
[2021-06-12 19:51] VITALS: BP 105/52; PULSE 84; RESP 16; TEMP 36.6; O2SAT 100
[2021-06-12 20:00] VITALS: PULSE 84; RESP 16; O2SAT 100
[2021-06-13] MEDS: SODIUM CHLORIDE 0.9% IV 1,000 ML 75 ML IV CONT ×2 (02:54→17:05)
[2021-06-13] MEDS: SIMETHICONE 80 MG TAB.CHEW PO ×4 (02:54→21:39)
[2021-06-13 04:02] VITALS: BP 122/75; PULSE 63; RESP 17; TEMP 36.4; O2SAT 100
[2021-06-13] MEDS: methylPREDNISolone SOD SUCC 40 MG VIAL IV PUSH (05:56)
[2021-06-13] MEDS: MORPHINE SULFATE (*CRX) 2 MG/ML INJ IV PUSH ×2 (07:29→22:36)
--- NOTE | 2021-06-13 08:23 | WPDGIPROGNO ---
Progress Note: A&P Assessment and Plan (1) Crohn's disease: Qualifiers: Digestive disease complication type: without complication Gastrointestinal tract location: small intestine Qualified Code(s): K50.00 - Crohn's disease of small intestine without complications Code(s): K50.90 - Crohn's disease, unspecified, without complications Status: Acute Assessment and Plan: Patient with Crohn's disease. Small-bowel follow-through x-ray reveals terminal ileal changes consistent with Crohn's disease. No significant stricture ring at present. No obvious fistula formation. Plan to advance slowly to low residue diet. Try to diminish pain injections. Increase activity. Continue oral medications. Humira previously prescribed will be started as soon as insurance approval is obtained. This can be done as an outpatient. (2) Abnormal CT scan: Code(s): R93.89 - Abnormal findings on diagnostic imaging of other specified body structures Status: Acute Assessment and Plan: CT scan suggest the possibility of small abscess adjacent to the small bowel. This is not a certainty. Will continue trial of antibiotics. Changed to p.o. medications if diet is tolerated. Need to diminished pain injections if others agree. Subjective Date/time seen: 06/13/21 08:23 Patient still complains rather vague abdominal pain. Still requesting morphine regularly. He states his bowel habits are normal. Tolerating sips of liquids without difficulty. No fever. Review of Systems Review of Systems: All systems reviewed & are unremarkable except as noted in HPI and below Exam Narrative: Physical exam reveals patient be alert and afebrile. Vital signs stable. HEENT exam reveals no icterus. Lungs are clear. Heart without murmur. Abdomen bowel sounds are present soft no localized tenderness. Objective Data Vital Signs Vital Signs: Vital Signs - 24 hr 06/12/21 14:00 06/12/21 14:05 06/12/21 19:51 Temperature 98.1 F 97.8 F Pulse Rate 137 H 80 84 Respiratory Rate 16 16 Blood Pressure 119/76 105/52 L Pulse Oximetry 99 100 06/12/21 20:00 06/13/21 04:02 Temperature 97.5 F L Pulse Rate 84 63 Respiratory Rate 16 17 Blood Pressure 122/75 Pulse Oximetry 100 100 Intake/Output Intake/Output: Intake & Output 11/29/21 11/30/21 12/01/21 12/02/21 23:59 23:59 23:59 23:59 Intake Total 50 1500 2138 Balance 50 1500 2138 Meds/Results Medications: Active Medications Generic Name Dose Route Start Last Admin Trade Name Freq PRN Reason Stop Dose Admin Enoxaparin Sodium 40 mg 06/12/21 09:00 06/12/21 11:31 Enoxaparin 40 Mg/0.4 Ml Syringe SUB-Q 40 mg DAILY BRYANT Administration Sodium Chloride 1,000 mls @ 75 mls/hr 06/11/21 10:30 06/13/21 02:54 Normal Saline Iv IV CONT 75 mls/hr .[id number] BRYANT Administration Piperacillin/Tazobactam/Dextrose 3.375 gm in 50 mls @ 100 mls/hr 06/12/21 02:00 06/13/21 03:24 Zosyn 3.375 Gm/D5w 50ml Pm IVPB Infused Q6H BRYANT Infusion Mesalamine 1,000 mg 06/11/21 17:00 06/12/21 20:13 Mesalamine 250 Mg Cap Cr PO 1,000 mg QID BRYANT Administration Morphine Sulfate 2 mg 06/11/21 13:35 06/13/21 07:29 Morphine Sulfate (*Crx) 2 Mg/Ml Inj IV PUSH 2 mg Q4H PRN Administration Pain Rated 7-10 Ondansetron HCl 4 mg 06/12/21 14:26 Ondansetron Inj 4 Mg/2 Ml Vial IV PUSH Q6H PRN Nausea And Vomiting Simethicone 80 mg 06/12/21 14:26 06/13/21 07:28 Simethicone 80 Mg Tab.Chew PO 80 mg BID PRN Administration Gas Discomfort Radiology Results: ITS Impressions Abdomen/Pelvis CT 06/11/21 09:39 IMPRESSION: 1. Segmental enterocolitis consistent with acute flare of reported Crohn's disease. This involves a segment of distal ileum and a short segment of the immediately adjacent sigmoid colon with very small abscesses versus diverticulum along the affected loop of ileum as well as a possible developing entero
[2021-06-13] MEDS: MESALAMINE 250 MG CAP CR 1000 MG PO ×4 (08:54→20:05)
[2021-06-13] MEDS: ENOXAPARIN 40 MG/0.4 ML SYRINGE SUB-Q (08:55)
--- NOTE | 2021-06-13 10:21 | PM.IMPN ---
Progress Note: A&P Assessment and Plan (1) Crohn's colitis: Qualifiers: Digestive disease complication type: with abscess Qualified Code(s): K50.114 - Crohn's disease of large intestine with abscess Code(s): K50.10 - Crohn's disease of large intestine without complications Status: Acute Assessment and Plan: continue steroids, antibiotics, and mesalamine advanced diet gradually Started oral pain medication (2) Abnormal CT scan: Code(s): R93.89 - Abnormal findings on diagnostic imaging of other specified body structures Status: Acute Assessment and Plan: CT scan shows a very small abscess versus diverticulum along the affected loop of ileum as well as possible developing enterocolic fistula. He has been started on Zosyn per antibiotic stewardship recommendations. Gradually advance diet to low residual diet Anticipate discharge once okay with GI on oral antibiotics may need steroid on discharge for Crohn pending final GI recommendation also patient may need Humira and discharged GI is following (3) Chronic anemia: Code(s): D64.9 - Anemia, unspecified Status: Acute Assessment and Plan: Hemoglobin is stable on review of previous labs. (4) Hypokalemia: Code(s): E87.6 - Hypokalemia Status: Acute Assessment and Plan: Replaced monitor CMP Subjective Date/time seen: 06/13/21 10:21 Interval history: Patient seen and examined Patient feels weak he still have episodes of abdominal pain Improved plan to advance diet gradually started oral pain medication today Wean off IV pain medication GI following patient may need to be discharged on Humira as outpatient GI is a addressing Patient denies fever headache chest pain shortness of breath I am seeing the patient for enterocolitis Exam Narrative: Alert Chest no wheeze crackles Abdomen positive tenderness no rebound no guarding CVS S1 + S2 Lower extremity edema Objective Data Vital Signs Vital Signs: Vital Signs - 24 hr 06/12/21 14:00 06/12/21 14:05 06/12/21 19:51 Temperature 98.1 F 97.8 F Pulse Rate 137 H 80 84 Respiratory Rate 16 16 Blood Pressure 119/76 105/52 L Pulse Oximetry 99 100 06/12/21 20:00 06/13/21 04:02 Temperature 97.5 F L Pulse Rate 84 63 Respiratory Rate 16 17 Blood Pressure 122/75 Pulse Oximetry 100 100 Intake/Output Intake/Output: Intake & Output 06/10/21 06/11/21 06/12/21 06/13/21 23:59 23:59 23:59 23:59 Intake Total 50 1500 2428 Balance 50 1500 2428 Meds/Results Medications: Active Medications Generic Name Dose Route Start Last Admin Trade Name Freq PRN Reason Stop Dose Admin Enoxaparin Sodium 40 mg 06/12/21 09:00 06/13/21 08:55 Enoxaparin 40 Mg/0.4 Ml Syringe SUB-Q 40 mg DAILY BRYANT Administration Sodium Chloride 1,000 mls @ 75 mls/hr 06/11/21 10:30 06/13/21 02:54 Normal Saline Iv IV CONT 75 mls/hr .[id number] BRYANT Administration Piperacillin/Tazobactam/Dextrose 3.375 gm in 50 mls @ 100 mls/hr 06/12/21 02:00 06/13/21 09:25 Zosyn 3.375 Gm/D5w 50ml Pm IVPB Infused Q6H BRYANT Infusion Mesalamine 1,000 mg 06/11/21 17:00 06/13/21 08:54 Mesalamine 250 Mg Cap Cr PO 1,000 mg QID BRYANT Administration Morphine Sulfate 2 mg 06/11/21 13:35 06/13/21 07:29 Morphine Sulfate (*Crx) 2 Mg/Ml Inj IV PUSH 2 mg Q4H PRN Administration Pain Rated 7-10 Ondansetron HCl 4 mg 06/12/21 14:26 Ondansetron Inj 4 Mg/2 Ml Vial IV PUSH Q6H PRN Nausea And Vomiting Prednisone 40 mg 06/14/21 08:00 Prednisone 20 Mg Tablet PO DAILY@0800 [facility] Simethicone 80 mg 06/12/21 14:26 06/13/21 07:28 Simethicone 80 Mg Tab.Chew PO 80 mg BID PRN Administration Gas Discomfort Radiology Results: ITS Impressions Abdomen/Pelvis CT 06/11/21 09:39 IMPRESSION: 1. Segmental enterocolitis consistent with acute flare of reported Crohn's disease. This involves a segment
[2021-06-13 10:33] LABS: Basophils Percent Auto 0.2 % (0.2-1.2); Hematocrit 36.8 % (42.0-52.0); Hemoglobin 11.6 g/dL (14.0-18.0); Immature Granulocyte Absolute 0.12 K/mm3 (0.00-0.031); Immature Granulocyte Percent A 1.1 % (0-0.5); Lymphocytes Absolute Auto 0.77 K/mm3 (0.9-3.2); Lymphocytes Percent Auto 7.1 % (18.3-44.2); Mean Corpuscular HGB Conc 31.5 g/dl (32-36); Mean Corpuscular Hemoglobin 28.6 pg (26-34); Mean Corpuscular Volume 90.6 fl (80-100); Mean Platelet Volume 9.3 fl (7.4-10.4); Monocytes Absolute Auto 0.5 K/mm3 (0.1-0.6); Monocytes Percent Auto 4.6 % (2.6-8.5); Neutrophils Absolute Auto 9.5 K/mm3 (1.3-6.7); Platelet Count Result 491 k/mm3 (150-375); Red Blood Count 4.06 M/mm3 (4.6-6.20); Red Cell Distribution Width 12.1 % (11.5-14.5); White Blood Count 10.9 K/mm3 (4.5-10.0)
[2021-06-13 10:48] LABS: Alanine Aminotransferase 10 U/L (4-50); Albumin Level 3.8 g/dL (3.5-5.1); Alkaline Phosphatase 45 U/L (38-126); Anion Gap 7 mmol/L (8-16); Aspartate Amino Transferase 15 U/L (17-59); Bilirubin,Total 0.6 mg/dL (0.2-1.3); Blood Urea Nitrogen 8 mg/dL (9-20); Calcium 8.9 mg/dL (8.4-10.2); Carbon Dioxide 28 mmol/L (22-30); Chloride 98 mmol/L (98-107); Estimated CRCL calculation 84 ml/min; Estimated Glomerular Filt Rate > 60; Glucose 125 mg/dL (65-110); Sodium 133 mmol/L (137-145)
[2021-06-13 14:00] VITALS: BP 124/78; PULSE 68; RESP 16; TEMP 36.4; O2SAT 100
[2021-06-13] MEDS: HYDROcodone/acetaminophen (*CRX) 5-325 MG TABLET 1 TAB PO ×2 (14:52→21:39)
[2021-06-13 20:00] VITALS: PULSE 68; RESP 16; O2SAT 100
[2021-06-13 22:00] VITALS: BP 118/67; PULSE 70; RESP 21; TEMP 36.1; O2SAT 100
[2021-06-14] MEDS: SIMETHICONE 80 MG TAB.CHEW PO (05:53)
[2021-06-14] MEDS: HYDROcodone/acetaminophen (*CRX) 5-325 MG TABLET 1 TAB PO (05:53)
[2021-06-14 06:00] VITALS: BP 134/70; PULSE 70; RESP 20; TEMP 36; O2SAT 98
[2021-06-14] MEDS: SODIUM CHLORIDE 0.9% IV 1,000 ML 75 ML IV CONT (06:38)
[2021-06-14 06:47] LABS: Basophils Percent Auto 0.2 % (0.2-1.2); Eosinophils Percent Auto 0.1 % (0-4.4); Hematocrit 35.9 % (42.0-52.0); Immature Granulocyte Absolute 0.07 K/mm3 (0.00-0.031); Immature Granulocyte Percent A 0.8 % (0-0.5); Lymphocytes Absolute Auto 1.88 K/mm3 (0.9-3.2); Lymphocytes Percent Auto 21.6 % (18.3-44.2); Mean Corpuscular HGB Conc 30.6 g/dl (32-36); Mean Corpuscular Hemoglobin 28.9 pg (26-34); Mean Corpuscular Volume 94.5 fl (80-100); Mean Platelet Volume 10.1 fl (7.4-10.4); Monocytes Absolute Auto 1.2 K/mm3 (0.1-0.6); Monocytes Percent Auto 13.2 % (2.6-8.5); Neutrophils Absolute Auto 5.6 K/mm3 (1.3-6.7); Neutrophils Percent Auto 64.1 % (45.5-73.1); Platelet Count Result 432 k/mm3 (150-375); Red Cell Distribution Width 12.4 % (11.5-14.5); White Blood Count 8.7 K/mm3 (4.5-10.0)
[2021-06-14 07:14] LABS: Alanine Aminotransferase 8 U/L (4-50); Alkaline Phosphatase 35 U/L (38-126); Anion Gap 5 mmol/L (8-16); Aspartate Amino Transferase 16 U/L (17-59); Bilirubin,Total 0.3 mg/dL (0.2-1.3); Blood Urea Nitrogen 7 mg/dL (9-20); Calcium 8.3 mg/dL (8.4-10.2); Carbon Dioxide 25 mmol/L (22-30); Chloride 102 mmol/L (98-107); Estimated CRCL calculation 76 ml/min; Estimated Glomerular Filt Rate > 60; Glucose 88 mg/dL (65-110); Potassium 3.8 mmol/L (3.4-5.0); Sodium 132 mmol/L (137-145)
--- NOTE | 2021-06-14 07:46 | WPDGIPROGNO ---
Progress Note: A&P Assessment and Plan (1) Abdominal pain: Code(s): R10.9 - Unspecified abdominal pain Status: Acute Assessment and Plan: Patient with abdominal pain presumed to be related to Crohn's disease. Plan to advance to a low residue diet. It is possible the pain may also represent irritable bowel syndrome. Will try to change to oral medications. Try Bentyl as well as anti-inflammatory agents. Patient will not be able to receive IV narcotics after discharge. Hopefully we can avoid pain medicines if primary care service agrees. (2) Crohn's disease: Qualifiers: Digestive disease complication type: without complication Gastrointestinal tract location: small intestine Qualified Code(s): K50.00 - Crohn's disease of small intestine without complications Code(s): K50.90 - Crohn's disease, unspecified, without complications Status: Acute Assessment and Plan: Patient with known Crohn's disease. Several small bowel skip areas. Advance to a low residue diet will continue antibiotics for 1 week after discharge. These will need to be changed to oral medications. Oral Pentasa and prednisone will continue. Humira has been requested from [employer] and will be implemented as an outpatient when approval is obtained. Subjective Date/time seen: 06/14/21 07:46 Patient continues to have intermittent vague abdominal pain. Poorly described. He states that somewhat like bloating. He tolerated diet early in the day. Pain is not particularly related to diet. He is having good bowel movements. No emesis. Review of Systems Review of Systems: All systems reviewed & are unremarkable except as noted in HPI and below Exam Narrative: Physical exam reveals patient be alert. Vital signs stable. HEENT exam unremarkable. Patient is anicteric. Lungs are clear to auscultation and percussion. Heart is without murmur or extra sounds. Abdominal exam flat scaphoid bowel sounds are present soft nontender no organomegaly. Extremities are without clubbing cyanosis or edema. Objective Data Vital Signs Vital Signs: Vital Signs - 24 hr 06/13/21 14:00 06/13/21 20:00 06/13/21 22:00 Temperature 97.5 F L 97.0 F L Pulse Rate 68 68 70 Respiratory Rate 16 16 21 H Blood Pressure 124/78 118/67 Pulse Oximetry 100 100 100 Intake/Output Intake/Output: Intake & Output 11/30/21 06/12/21 06/13/21 06/14/21 23:59 23:59 23:59 23:59 Intake Total 50 1500 4398 1050 Balance 50 1500 4398 1050 Meds/Results Medications: Active Medications Generic Name Dose Route Start Last Admin Trade Name Freq PRN Reason Stop Dose Admin Hydrocodone Bitart/Acetaminophen 1 tab 06/13/21 10:21 06/14/21 05:53 Hydrocodone/Acetaminophen (*Crx) 5-325 Mg Tablet PO 1 tab Q4H PRN Administration Pain Rated 4-6 Enoxaparin Sodium 40 mg 06/12/21 09:00 06/13/21 08:55 Enoxaparin 40 Mg/0.4 Ml Syringe SUB-Q 40 mg DAILY BRYANT Administration Sodium Chloride 1,000 mls @ 75 mls/hr 06/11/21 10:30 06/14/21 06:38 Normal Saline Iv IV CONT 75 mls/hr .[id number] BRYANT Administration Piperacillin/Tazobactam/Dextrose 3.375 gm in 50 mls @ 100 mls/hr 06/12/21 02:00 06/14/21 02:28 Zosyn 3.375 Gm/D5w 50ml Pm IVPB Infused Q6H BRYANT Infusion Mesalamine 1,000 mg 06/11/21 17:00 06/13/21 20:05 Mesalamine 250 Mg Cap Cr PO 1,000 mg QID BRYANT Administration Morphine Sulfate 2 mg 06/11/21 13:35 06/13/21 22:36 Morphine Sulfate (*Crx) 2 Mg/Ml Inj IV PUSH 2 mg Q4H PRN Administration Pain Rated 7-10 Ondansetron HCl 4 mg 06/12/21 14:26 Ondansetron Inj 4 Mg/2 Ml Vial IV PUSH Q6H PRN Nausea And Vomiting Prednisone 40 mg 06/14/21 08:00 Prednisone 20 Mg Tablet PO DAILY@0800 BRYANT Simethicone 80 mg 06/13/21 14:42 06/14/21 05:53 Simethicone 80 Mg Tab.Chew PO 80 mg Q6H PRN Administration Gas Discomfort Radiology Results: ITS Impressions
[2021-06-14] MEDS: predniSONE 20 MG TABLET 40 MG PO (08:08)
[2021-06-14] MEDS: ENOXAPARIN 40 MG/0.4 ML SYRINGE SUB-Q (08:08)
[2021-06-14] MEDS: MESALAMINE 250 MG CAP CR 1000 MG PO ×2 (08:08→13:40)
[2021-06-14] MEDS: DICYCLOMINE HCL 10 MG CAPSULE PO (08:54)
--- NOTE | 2021-06-14 13:40 | PM.DS ---
DS: Admitting Diagnosis Discharge Date 06/14/2021 Admitting Diagnosis abdominal pain DS: Discharge Diagnosis Discharge Diagnosis (1) Crohn's colitis: Qualifiers: Digestive disease complication type: with abscess Qualified Code(s): K50.114 - Crohn's disease of large intestine with abscess Code(s): K50.10 - Crohn's disease of large intestine without complications Status: Acute Assessment and Plan: is to be on Humira before however insurance coverage was lost and hence he has not received his MRI for the past 2 months now back with flare up of his Crohn's disease. Was started on steroid antibiotics and Mesalamine.. Pain improved Continue steroid and antibiotics as advised by GI was consulted during the hospital stay GI would work to restart MRI from insurance company and will be implemented as an outpatient basis when approval is obtained Tolerating diet without any diarrhea or nausea vomiting (2) Abnormal CT scan: Code(s): R93.89 - Abnormal findings on diagnostic imaging of other specified body structures Status: Acute Assessment and Plan: CT scan shows a very small abscess versus diverticulum along the affected loop of ileum as well as possible developing enterocolic fistula. He has been started on Zosyn per antibiotic stewardship recommendations. Gradually advance diet to low residual diet okay to discharge per GI will follow up with GI as an outpatient basis (3) Chronic anemia: Code(s): D64.9 - Anemia, unspecified Status: Acute Assessment and Plan: Hemoglobin is stable on review of previous labs. (4) Hypokalemia: Code(s): E87.6 - Hypokalemia Status: Acute Assessment and Plan: Replaced monitor CMP DS: Summary Hospital Course Hospital Course: see above Time Spent with Patient Time attestation: Total time spent providing and/or coordinating discharge services: 35 minutes Exam Narrative: Alert Chest no wheeze crackles Abdomen positive tenderness no rebound no guarding CVS S1 + S2 Lower extremity edema DS: Data Data Completed and Pending Labs on day of discharge: Labs from last 24 hours 06/14/21 06/14/21 05:51 05:48 WBC 8.7 RBC 3.80 L Hgb 11.0 L Hct 35.9 L MCV 94.5 MCH 28.9 MCHC 30.6 L RDW 12.4 Plt Count 432 H MPV 10.1 Immature Gran % (Auto) 0.8 H Neut % (Auto) 64.1 Lymph % (Auto) 21.6 Gaines % (Auto) 13.2 H Eos % (Auto) 0.1 Baso % (Auto) 0.2 Lymph # (Auto) 1.88 Gaines # (Auto) 1.2 H Eos # (Auto) 0.0 Baso # (Auto) 0.0 Abs Immat Gran (auto) 0.07 H Absolute Neuts (auto) 5.6 Absolute Nucleated RBC 0.0 Nucleated RBC % 0.0 Sodium 132 L Potassium 3.8 Chloride 102 Carbon Dioxide 25 Anion Gap 5 L BUN 7 L Creatinine 1.00 Estim Creat Clear Calc 76 Estimated GFR > 60 Glucose 88 Calcium 8.3 L Total Bilirubin 0.3 AST 16 L ALT 8 Alkaline Phosphatase 35 L Total Protein 5.0 L Albumin 3.0 L Imaging Radiologist's impression: ITS Impressions Abdomen/Pelvis CT 06/11/21 09:39 IMPRESSION: 1. Segmental enterocolitis consistent with acute flare of reported Crohn's disease. This involves a segment of distal ileum and a short segment of the immediately adjacent sigmoid colon with very small abscesses versus diverticulum along the affected loop of ileum as well as a possible developing enterocolic fistula. Upper GI and Small Bowel X-Ray 06/12/21 11:54 IMPRESSION: Abnormal ileum, terminal ileum consistent with Crohn's disease. Normal transit time 1.5-2 hours. Discharge Plan Discharge Attending physician on discharge: Perfecto Carranza Consulting providers: Andrey Martini Discharging Clinician: Perfecto Carranza Anticipated Discharge Date/Time: 06/14/21 13:36 Patient Disposition: Home, Self-Care Activity: as tolerated Diet: low fiber Patient Instructions: Antibiotic Form,
== END 2021-06-14 14:38 | disposition home or self-care (01) | DRG 385 ==
LOC: ANHED 12:13 → ANH3MEDSUR 13:26 → ANH2MED 06-12 11:02 → ANH3MEDSUR 06-17 14:52
PROVIDERS: Internal Medicine; Physician Assistant; Admitting Provider Family Medicine; Emergency Provider Emergency Medicine; PCP Physician Assistant; Visit Provider Internal Medicine
DX: K50.114 Crohn's disease of large intestine with abscess (principal); K65.1 Peritoneal abscess; D64.9 Anemia, unspecified; E87.6 Hypokalemia; D72.829 Elevated white blood cell count, unspecified; F90.9 Attention-deficit hyperactivity disorder, unspecified type; F41.9 Anxiety disorder, unspecified
CPT/HCPCS: 36415; 74177; 74250; 80053; 81001; 83690; 83735; 85025; 85027; 85652; 86140; 96374; 99285; A9270; J1170; J1650; J2270; J2543; J2920; J7030; J7512; Q9967

== ENCOUNTER 2021-06-15 06:27 | Inpatient (IN) | payer OTHER, SELFPAY ==
--- NOTE | ~2021-06-15 | CT_ITS ---
EXAMINATION: CT abdomen pelvis w con DATE: 06/15/2021 10:21 INDICATION: Crohn's disease with fistula, abscess and abdominal pain. TECHNIQUE: Computed tomography (CT) of the abdomen and pelvis was performed with 100 mL Omnipaque-350 intravenous contrast. Automated exposure control and iterative reconstruction technique were employe d. The dose-length product was 301.95 mGy-cm. COMPARISON: 06/11/2021 FINDINGS: Lung bases are clear. Heart size is normal. No pericardial or pleural effusion. Focal hepatic steatos is ligamentum teres. Liver, spleen, pancreas, bilateral adrenal glands and kidneys are normal. Normal retrocecal appendix. Contrast scattered throughout the colon related to recent small bowel follow-th rough study from 3 days prior. No bowel obstruction. Again seen is enhancing wall thickening along an approximately 20 cm length of distal ileum sparing the 10 cm proximal to the ileocecal valve. The pr evious noted peripherally enhancing fluid collection along the posterior inferior margin of the affec gaston small bowel now measures 2.8 x 2.2 cm and appears contiguous with the lumen of the small bowel both proxima lly and distally. The appearance and the current study is more consistent with a short focally dilate d segment of the bowel rather than a diverticulum or abscess. There is a minimal amount of adjacent u norganized ascites in the pelvis. Also without significant interval change is additional asymmetric w all thickening along the distal sigmoid colon where it closely approaches the affected segment of ileum. Again seen is a small focus of gas peripheral to the enhancing mucosa in the region of the sigmoid wa ll thickening which remain suspicious for developing enterocolonic fistula. No free intraperitoneal g as or organized abscess. Bladder is normal. Surgical clip in the anterior right hemipelvis. No pathol ogically enlarged abdominal or pelvic lymphadenopathy. Bones are unremarkable. Small amount of likely injected subcutaneous gas in the fat of the left lower quadrant anterior abdominal wall. IMPRESSION: 1. No significant interval change in segmental enterocolitis consistent with acute flare of reported Crohn's disease. This involves a segment of distal ileum and a short segment of the immediately adjac ent sigmoid colon with suggestion of an intervening developing enterocolic fistula. 2. No abscess. Reviewed, dictated and finalized at location [facility] [employer] IMPRESSION: 1. No significant interval change in segmental enterocolitis consistent with ac eek flare of reported Crohn's disease. This involves a segment of distal ileum and a short segment of the immediately adjacent sigmoid colon with suggestion o f an intervening developing enterocolic fistula. 2. No abscess.
[2021-06-15 06:32] VITALS: BP 141/92; PULSE 59; RESP 18; TEMP 36.3; O2SAT 100
[2021-06-15 07:59] LABS: Basophils Percent Auto 0.2 % (0.2-1.2); Eosinophils Percent Auto 0.1 % (0-4.4); Hematocrit 38.5 % (42.0-52.0); Hemoglobin 11.9 g/dL (14.0-18.0); Immature Granulocyte Absolute 0.12 K/mm3 (0.00-0.031); Immature Granulocyte Percent A 1.1 % (0-0.5); Lymphocytes Absolute Auto 2.45 K/mm3 (0.9-3.2); Lymphocytes Percent Auto 21.6 % (18.3-44.2); Mean Corpuscular HGB Conc 30.9 g/dl (32-36); Mean Corpuscular Hemoglobin 28.6 pg (26-34); Mean Corpuscular Volume 92.5 fl (80-100); Mean Platelet Volume 9.7 fl (7.4-10.4); Monocytes Absolute Auto 1.3 K/mm3 (0.1-0.6); Monocytes Percent Auto 11.6 % (2.6-8.5); Neutrophils Absolute Auto 7.4 K/mm3 (1.3-6.7); Neutrophils Percent Auto 65.4 % (45.5-73.1); Platelet Count Result 491 k/mm3 (150-375); Red Blood Count 4.16 M/mm3 (4.6-6.20); Red Cell Distribution Width 12.4 % (11.5-14.5); White Blood Count 11.3 K/mm3 (4.5-10.0)
[2021-06-15 08:04] LABS: Add Urine Microscopic? NO; Appearance Urine Clear (Clear); Bilirubin Urine Negative (Negative); Blood Urine Negative (Negative); Color Urine Yellow (Yellow); Glucose Urine UA Negative (Negative); Ketones Urine Negative (Negative); Leukocyte Esterase Ur Negative LEU/UL (Negative); Nitrate Urine Negative (Negative); Protein Urine Negative (Negative); Urobilinogen Urine Negative mg/dL (<2.0)
[2021-06-15 08:11] LABS: Alanine Aminotransferase 14 U/L (4-50); Albumin Level 3.7 g/dL (3.5-5.1); Alkaline Phosphatase 43 U/L (38-126); Anion Gap 6 mmol/L (8-16); Aspartate Amino Transferase 22 U/L (17-59); Bilirubin,Total 0.4 mg/dL (0.2-1.3); Blood Urea Nitrogen 8 mg/dL (9-20); Calcium 8.8 mg/dL (8.4-10.2); Carbon Dioxide 30 mmol/L (22-30); Chloride 98 mmol/L (98-107); Estimated CRCL calculation 97 ml/min; Estimated Glomerular Filt Rate > 60; Glucose 92 mg/dL (65-110); Lipase 78 U/L (23-300); Potassium 3.4 mmol/L (3.4-5.0); Sodium 134 mmol/L (137-145)
--- NOTE | 2021-06-15 08:15 | ED.ABDPAIN ---
HPI - Abdominal Pain General Chief Complaint: Abdominal Pain Stated Complaint: abd pain Time Seen by Provider: 06/15/21 07:24 Source: patient Mode of arrival: ambulatory Limitations: no limitations History of Present Illness HPI narrative: 26-year-old male Just discharged yesterday after inpatient treatment for a Crohn's flare He reports after going home and resuming a diet that his abdominal pain has again increased and he is now having some blood in the stools so he returned to the ED CT a few days ago did show a developing fistula and a small abscess No fever No nausea vomiting, no urinary symptoms History of Crohn's times for 5 years, sees Dr. Martini here Related Data Allergies Allergy/AdvReac Type Severity Reaction Status Date / Time No Known Allergies Allergy Verified 06/15/21 06:35 Review of Systems Review of Systems: All systems reviewed & are unremarkable except as noted in HPI and below Constitutional: Constitutional: Reports no additional constitutional complaints, Denies chills, Denies fatigue, Denies fever(s), Denies headache(s) and Denies weakness Eyes: Eyes: Reports no additional eye complaints and Denies change in vision ENT: Denies headache(s) and Denies sore throat Cardiovascular: Cardiovascular: Denies chest pain and Denies dyspnea Respiratory: Respiratory: Denies cough and Denies dyspnea Gastrointestinal: Gastrointestinal: Reports abdominal pain, Reports diarrhea and Denies vomiting Genitourinary: Genitourinary: Denies dysuria and Denies urinary frequency Musculoskeletal: Musculoskeletal: Denies deformity, Denies arthralgias, Denies joint swelling and Denies numbness Integumentary/Breasts: Skin/Breast: Denies rash and Denies wounds Neurologic: Denies headache(s), Denies focal weakness and Denies numbness Psychiatric: Psychiatric: Reports no additional psychiatric complaints Endocrine: Endocrine: Reports no additional endocrine complaints Hematologic/Lymphatic: Hematologic/Lymphatic: Reports no additional hematologic/lymphatic complaints Allergic/Immunologic: Allergic/Immunologic: Reports no additional allergic/immunologic complaints [facility] Past Medical History Medical History Anxiety Attention deficit hyperactivity disorder Chronic anemia Crohn's disease (~04/2012) Surgical History Surgical History History of colonoscopy Family History Family History Father Scoliosis Mother Chronic GERD Grandparent Diabetes mellitus Social History Social History Social History: The patient is originally from [place], [place]. 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 He does not use tobacco products. He drinks alcohol rarely, and in moderation. He does smoke marijuana, which helps with his abdominal pain. He does meets his mother, Sandrine Metzger, as his surrogate decision maker and he wishes to be a full code. Smoking status: Current every day smoker Tobacco type: cigars and e-cigarettes/vaping Alcohol intake: current Drinks per week: 1 Substance use: never Spiritual care concerns: No Exam Const: General: cooperative, no acute distress and alert Nutritional Appearance: thin Orientation/consciousness: patient oriented x3 (alert) HENMT: Head: normal to inspection, normocephalic and atraumatic Ears: external ears normal General nose exam: no epistaxis Eyes: Conjunctivae: conjunctivae normal EOM: EOMs intact bilaterally Neck: Neck: normal visual inspection, supple and no JVD Resp: Effort & Inspection: normal respiratory effort and not labored Auscultation: clear to auscultation bilaterally, no rales, no rhonchi, no wheezes and other (BS =) Cardio: Rate: regular rate Rhythm: regular rhythm Heart sounds: no murmurs GI: GI Palp: Yes Soft to p
[2021-06-15] MEDS: DICYCLOMINE HCL INJ 20 MG/2 ML VIAL IM (08:28)
[2021-06-15] MEDS: LACTATED RINGERS 1,000 ML 150 ML IV CONT ×3 (08:30→23:52)
[2021-06-15] MEDS: ACETAMINOPHEN 325 MG TABLET 650 MG PO (10:11)
[2021-06-15 12:03] VITALS: BP 119/73; PULSE 86; RESP 18; O2SAT 98
--- NOTE | 2021-06-15 12:03 | PM.IMHP ---
H&P: HPI History of Present Illness Date/Time: 06/15/21 12:04 Chief Complaint: Abdominal pain Narrative: Patient is 26-year-old male who was recently discharged after a Crohn's flare presented back again with increased abdominal pain and having bloody stool. He was tolerating diet without any pain or nausea vomiting at the time of discharge. He denies any fever or chills. There was small amount of blood in his stool. CT repeat with findings suggestive of developing fistula. He was being treated with humira for his Crohn's disease however because of insurance issue he has not received it since past 2 months leading to the flares. Review of Systems Review of Systems: - CONSTITUTIONAL: Denies weight loss, fever and chills. - HEENT: Denies changes in vision and hearing - RESPIRATORY: Denies SOB and cough. - CV: Denies palpitations and CP. - GI: Reports abdominal pain, denies nausea, vomiting and reports diarrhea with blood. - : Denies dysuria and urinary frequency. - MSK: Denies myalgia and joint pain. - SKIN: Denies rash and pruritus. - NEUROLOGICAL: Denies headache and syncope. - PSYCHIATRIC: Denies recent changes in mood. Denies anxiety and depression. All systems reviewed & are unremarkable except as noted in HPI and below Constitutional: Constitutional: Reports fatigue and Reports weakness Neurologic: Reports weakness Endocrine: Endocrine: Reports fatigue PMFSH Past Medical History Medical History Anxiety Attention deficit hyperactivity disorder Chronic anemia Crohn's disease (~04/2012) Surgical History Surgical History History of colonoscopy Family History Family History Father Scoliosis Mother Chronic GERD Grandparent Diabetes mellitus Social History Social History Social History: The patient is originally from [place], [place]. 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 He does not use tobacco products. He drinks alcohol rarely, and in moderation. He does smoke marijuana, which helps with his abdominal pain. He does meets his mother, Sandrine Metzger, as his surrogate decision maker and he wishes to be a full code. Smoking status: Never smoker Tobacco type: cigars and e-cigarettes/vaping Alcohol intake: current Drinks per week: 1 Substance use: current Substance use type: marijuana Last use: 1 week ago Spiritual care concerns: No Meds Home Medications and Allergies Home Medications Medication Instructions Recorded Confirmed Type adalimumab 40 mg/0.8 mL See Rx Instructions SUBCUT 03/07/21 06/15/21 Rx subcutaneous pen kit .COMPLEX #2 ea amoxicillin-pot clavulanate 1 tablet PO Q12H #14 tablet 06/14/21 06/15/21 Rx [Augmentin] dicyclomine 10 mg PO TID PRN #60 cap 06/14/21 06/15/21 Rx mesalamine [Pentasa] 1,000 mg PO QID #480 cap 06/14/21 06/15/21 Rx prednisone 40 mg PO DAILY@0800 #30 tablet 06/14/21 06/15/21 Rx simethicone 80 mg PO Q6H PRN #30 tablet 06/14/21 06/15/21 Rx Allergies Allergy/AdvReac Type Severity Reaction Status Date / Time No Known Allergies Allergy Verified 06/15/21 06:35 Vital Signs Vital Signs - 24 hr 06/15/21 06:32 06/15/21 12:03 Temperature 97.4 F L Pulse Rate 59 L 86 Respiratory Rate 18 18 Blood Pressure 141/92 H 119/73 Pulse Oximetry 100 98 Exam Narrative: General: Well-developed male in mild distress due to pain HEENT: PERRL, EOMI. Sclerae anicteric. Tacky mucous membranes. Oropharynx clear. Neck: Supple. Respiratory: Lungs are clear to auscultation bilaterally. Cardiovascular: Regular rate and rhythm with S1-S2. Gastrointestinal: Abdomen is soft and nondistended, positive bowel sounds, tender to palpation on periumbilical area Skin: Warm and dry. No rash or lesions on limited exam.
--- NOTE | 2021-06-15 12:27 | ADMGEN ---
This patient, Roman Metzger, was admitted to Medical Room 249-01. Patient/family oriented to hospital policies and general routines including ID bracelet, bed and alarms, visiting hours, pain management, procedures, bathroom and other care routines, personal items, smoking policy, room service/diet, and visiting hours. Information on how to activate the Rapid Response Team has been discussed. Patient/Family are encouraged to report perceived risks to care and to ask questions if they do not understand what they are told or what they should do. Patient resting comfortably with no complaints at this time. Will continue to monitor patient.
[2021-06-15 15:15] VITALS: BP 123/75; PULSE 70; RESP 14; TEMP 37.2; O2SAT 100
[2021-06-15] MEDS: MORPHINE SULFATE (*CRX) 2 MG/ML INJ IV PUSH ×2 (17:15→21:30)
[2021-06-15] MEDS: methylPREDNISolone SOD SUCC 40 MG VIAL IV PUSH (17:57)
[2021-06-15] MEDS: FAMOTIDINE 20 MG/2 ML VIAL IV PUSH (21:29)
[2021-06-15 22:00] VITALS: BP 130/63; PULSE 68; RESP 21; TEMP 36.4; O2SAT 100
[2021-06-16] MEDS: DICYCLOMINE HCL INJ 20 MG/2 ML VIAL IM (00:52)
[2021-06-16] MEDS: MORPHINE SULFATE (*CRX) 2 MG/ML INJ IV PUSH ×3 (01:49→20:17)
[2021-06-16] MEDS: methylPREDNISolone SOD SUCC 40 MG VIAL IV PUSH ×2 (05:19→18:08)
[2021-06-16 05:50] LABS: Basophils Percent Auto 0.3 % (0.2-1.2); Hematocrit 38.9 % (42.0-52.0); Hemoglobin 12.3 g/dL (14.0-18.0); Immature Granulocyte Percent A 0.8 % (0-0.5); Lymphocytes Percent Auto 7.9 % (18.3-44.2); Mean Corpuscular HGB Conc 31.6 g/dl (32-36); Mean Corpuscular Hemoglobin 28.5 pg (26-34); Mean Corpuscular Volume 90.3 fl (80-100); Mean Platelet Volume 10.1 fl (7.4-10.4); Monocytes Absolute Auto 0.6 K/mm3 (0.1-0.6); Monocytes Percent Auto 4.5 % (2.6-8.5); Neutrophils Percent Auto 86.5 % (45.5-73.1); Platelet Count Result 544 k/mm3 (150-375); Red Blood Count 4.31 M/mm3 (4.6-6.20); Red Cell Distribution Width 12.2 % (11.5-14.5); White Blood Count 12.7 K/mm3 (4.5-10.0)
[2021-06-16 06:00] VITALS: BP 130/64; PULSE 62; RESP 21; TEMP 36.6; O2SAT 100
[2021-06-16 06:05] LABS: Alanine Aminotransferase 14 U/L (4-50); Albumin Level 3.8 g/dL (3.5-5.1); Alkaline Phosphatase 49 U/L (38-126); Anion Gap 12 mmol/L (8-16); Aspartate Amino Transferase 22 U/L (17-59); Bilirubin,Total 0.5 mg/dL (0.2-1.3); Blood Urea Nitrogen 7 mg/dL (9-20); Calcium 9.3 mg/dL (8.4-10.2); Carbon Dioxide 27 mmol/L (22-30); Chloride 98 mmol/L (98-107); Estimated CRCL calculation 88 ml/min; Estimated Glomerular Filt Rate > 60; Glucose 114 mg/dL (65-110); Sodium 137 mmol/L (137-145)
[2021-06-16] MEDS: FAMOTIDINE 20 MG/2 ML VIAL IV PUSH ×2 (08:06→20:13)
[2021-06-16] MEDS: LACTATED RINGERS 1,000 ML 150 ML IV CONT (08:09)
--- NOTE | 2021-06-16 09:41 | WPDGICN ---
Assessment and Plan Assessment and plan (1) Crohn's colitis: Qualifiers: Digestive disease complication type: with abscess Qualified Code(s): K50.114 - Crohn's disease of large intestine with abscess Code(s): K50.10 - Crohn's disease of large intestine without complications Status: Acute Assessment and Plan: he is doing better with medical treatment. He changed insurance and now he is in the process to start again on humira soon. Repeat CT scan possible enterocolic fistula without abscess, also had recent SBFT that showed abnormal ileum, terminal ileum consistent with Crohn's disease. Normal transit time 1.5-2 hours. continue wiht iv steroids, antibiotics, ok to have liquid diet at some point will require another colonoscopy to reassess Dr Martini returns tomorrow. (2) Abdominal pain: Code(s): R10.9 - Unspecified abdominal pain Status: Acute Assessment and Plan: improved after medical management (3) Leukocytosis: Code(s): D72.829 - Elevated white blood cell count, unspecified Status: Acute Assessment and Plan: on abx (4) Abnormal CT scan: Code(s): R93.89 - Abnormal findings on diagnostic imaging of other specified body structures Status: Acute Assessment and Plan: CT scan reviewed GI Consult Note Consult date/time: 06/16/21 09:41 Reason for consult: Crohn's flare up HPI: Roman Metzger is a 26 year old male who just was discharged Thursday evening and returned to the hospital yesterday. He is Dr Martini's patient and he has Crohn's disease diagnosed in 2017 in [place] when had colonoscopy (he has not had a repeat one). About 1 year ago he was in the hospital at which time small-bowel series confirm several strictures in the small bowel. Patient had been treated with Humira since that timewith significant improvement of symptom (basically great control of abdominal pain) but unfortunately insurance did not cover anymore, he has not been on his medication since February this year. He was admitted again with worsening abdominal pain and evaluated again by Dr Martini, he had CT scan that was reviewed and suggest inflammation in the ileum with possibility of a colonic abscess , or diverticulum, or fistula. He went home Thursday feeling better but yesterday 2-3 hours after eating chicken sandwich developed again severe abdominal pain and had one bowel movement with bright red blood. CT scan was obtained, similar findings with possible enterocolic fistula but no abscess. Admitted to hospital, on iv steroids and antibiotics and now doing much better again. Review of Systems Constitutional: Constitutional: Denies chills Eyes: Eyes: Reports no additional eye complaints ENT: Reports Normal hearing present Cardiovascular: Cardiovascular: Denies chest pain Respiratory: Respiratory: Denies dyspnea Gastrointestinal: Gastrointestinal: Reports abdominal pain Genitourinary: Genitourinary: Denies dysuria Musculoskeletal: Musculoskeletal: Denies neck pain Integumentary/Breasts: Skin/Breast: Denies dry skin Neurologic: Denies headache(s) Psychiatric: Psychiatric: Denies behavioral changes PMFSH Past Medical History Medical History Anxiety Attention deficit hyperactivity disorder Chronic anemia Crohn's disease (~04/2012) Surgical History Surgical History History of colonoscopy Family History Family History Father Scoliosis Mother Chronic GERD Grandparent Diabetes mellitus Social History Social History Social History: The patient is originally from [place], [place]. 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 He does not use tobacco products. He drinks alcohol rarely, and in moderation. He does smoke marijuana, which helps with
--- NOTE | 2021-06-16 11:07 | PM.IMPN ---
Progress Note: A&P Assessment and Plan (1) Abdominal pain: Code(s): R10.9 - Unspecified abdominal pain Status: Acute (2) Crohn's colitis: Qualifiers: Digestive disease complication type: with abscess Qualified Code(s): K50.114 - Crohn's disease of large intestine with abscess Code(s): K50.10 - Crohn's disease of large intestine without complications Status: Acute (3) Chronic anemia: Code(s): D64.9 - Anemia, unspecified Status: Acute Additional Plan # acute Crohn's colitis used to be on MRI before. Insurance coverage was lost and hence not able to receive since past 2 months. Recently discharged for the same. CT abdomen repeat 06/15/2021 with no significant interval change and segmental enterocolitis. There is a short-segment of the immediately adjacent sigmoid colon with suggestion of an intervening developing enterocolic fistula. No abscess was noted. Start with Solu-Medrol IV 40 mg b.i.d. and Zosyn. GI consultation reviewed and appreciated the recommendations. Pain is better GI started him on clear liquid diet and will advance further as tolerated On Solu-Medrol and Zosyn which will be continued # possible developing enterocolic fistula: GI consultation reviewed will need colonoscopy as an outpatient basis # DVT prophylaxis SCDs # full code status Subjective Date/time seen: 06/16/21 11:07 Interval history: Feeling better. Denies any abdominal pain. Had 1 more bowel movement yesterday. At no further blood in the stool. GI saw him this morning. No fever chills. Review of Systems Review of Systems: All systems reviewed & are unremarkable except as noted in HPI and below Exam Narrative: General: Well-developed male in mild distress due to pain HEENT: PERRL, EOMI. Sclerae anicteric. Tacky mucous membranes. Oropharynx clear. Neck: Supple. Respiratory: Lungs are clear to auscultation bilaterally. Cardiovascular: Regular rate and rhythm with S1-S2. Gastrointestinal: Abdomen is soft and nondistended, positive bowel sounds, nontender Skin: Warm and dry. No rash or lesions on limited exam. Extremities: No cyanosis, clubbing, or edema. Radial and pedal pulses intact. Neurological: Alert. Cranial nerves 2-12 are grossly intact. No gross focal deficits to casual conversation. Psychiatric: Pleasant and cooperative with normal mood and affect. Judgment and insight intact. Objective Data Vital Signs Vital Signs: Vital Signs - 24 hr 06/15/21 12:03 06/15/21 15:15 06/15/21 22:00 Temperature 98.9 F 97.5 F L Pulse Rate 86 70 68 Respiratory Rate 18 14 21 H Blood Pressure 119/73 123/75 130/63 Pulse Oximetry 98 100 100 06/16/21 06:00 Temperature 97.8 F Pulse Rate 62 Respiratory Rate 21 H Blood Pressure 130/64 Pulse Oximetry 100 Intake/Output Intake/Output: Intake & Output 06/13/21 06/14/21 06/15/21 06/16/21 23:59 23:59 23:59 23:59 Intake Total 1100 1100 Output Total 800 1900 Balance 300 -800 Meds/Results Medications: Active Medications Generic Name Dose Route Start Last Admin Trade Name Freq PRN Reason Stop Dose Admin Acetaminophen 650 mg 06/15/21 09:59 06/15/21 10:11 Acetaminophen 325 Mg Tablet PO 650 mg Q4H PRN Administration Mild Pain (1-3) or Fever Dicyclomine HCl 20 mg 06/15/21 09:59 06/16/21 00:52 Dicyclomine Hcl Inj 20 Mg/2 Ml Vial IM 20 mg Q6H PRN Administration Abdominal Cramping Famotidine 20 mg 06/15/21 21:00 06/16/21 08:06 Famotidine 20 Mg/2 Ml Vial IV PUSH 20 mg Q12HR BRYANT Administration Lactated Ringer's 1,000 mls @ 150 mls/hr 06/15/21 14:30 06/16/21 08:09 Lr - Lactated Ringers Iv IV CONT 150 mls/hr .[id number] BRYANT Administration Piperacillin/Tazobactam/Dextrose 3.375 gm in 50 mls @ 100 mls/hr 06/15/21 12:00 06/16/21 05:49 Zosyn 3.375 Gm/D5w 50ml Pm IVPB Infused Q6H BRYANT Infusion Methylprednisolone Sodium Succinate 40 mg 06/15/21 18:00 06/16/21 05:19 M
[2021-06-16 14:27] VITALS: BP 124/84; PULSE 66; RESP 14; TEMP 36.8; O2SAT 100
[2021-06-16] MEDS: ACETAMINOPHEN 325 MG TABLET 650 MG PO (15:58)
[2021-06-16 22:00] VITALS: BP 121/58; PULSE 66; RESP 18; TEMP 36.4; O2SAT 99
[2021-06-16] MEDS: LACTATED RINGERS 1,000 ML 75 ML IV CONT (23:05)
[2021-06-17] MEDS: MORPHINE SULFATE (*CRX) 2 MG/ML INJ IV PUSH ×2 (00:15→05:24)
[2021-06-17] MEDS: methylPREDNISolone SOD SUCC 40 MG VIAL IV PUSH (05:28)
[2021-06-17 06:00] VITALS: BP 119/71; PULSE 88; RESP 14; TEMP 36.4; O2SAT 100
--- NOTE | 2021-06-17 08:44 | WPDGIPROGNO ---
Progress Note: A&P Assessment and Plan (1) Crohn's disease: Code(s): K50.90 - Crohn's disease, unspecified, without complications Status: Acute Assessment and Plan: Patient with Crohn's disease. Recent small bowel series shows Crohn's ileitis. CT scan suggest potential for fistula and or small abscess adjacent to the terminal ileum. Plan to continue antibiotics. Will change to low residue diet. Pentasa and steroids for now. Tapering dose of oral steroids advised. Humira has been prescribed but insurance issues have held this up. Previously he had good response to Humira. Now on Medicaid. Awaiting approval for Humira. (2) Abdominal pain: Code(s): R10.9 - Unspecified abdominal pain Status: Acute Assessment and Plan: Patient consistently has a pretty benign abdominal exam. Continues to complain of abdominal pain. Suspect this may be related to stricturing in the small intestine. Subjective Date/time seen: 06/17/21 08:44 Patient feels much better since admission the hospital. Denies significant abdominal pain. He has been taking pain medications when offered however. Denies any difficulty with liquid diet. Wishes more solid foods. Currently on IV antibiotics, steroids. Pentasa orally. Awaiting approval of Humira with new insurance company. States he changed his insurance company over the weekend. Review of Systems Review of Systems: All systems reviewed & are unremarkable except as noted in HPI and below Exam Narrative: Physical exam reveals patient to be alert. Vital signs stable. HEENT exam unremarkable. Lungs are clear to auscultation and percussion. Heart is without murmur or extra sounds. Abdominal exam bowel sounds present soft nontender no organomegaly. No masses. No tenderness at present. Extremities are without clubbing cyanosis or edema. Objective Data Vital Signs Vital Signs: Vital Signs - 24 hr 06/16/21 14:27 06/16/21 22:00 06/17/21 06:00 Temperature 98.2 F 97.6 F 97.6 F Pulse Rate 66 66 88 Respiratory Rate 14 18 14 Blood Pressure 124/84 121/58 L 119/71 Pulse Oximetry 100 99 100 Intake/Output Intake/Output: Intake & Output 06/14/21 06/15/21 06/16/21 06/17/21 23:59 23:59 23:59 23:59 Intake Total 1100 2870 550 Output Total 800 2200 1100 Balance 300 670 -550 Meds/Results Medications: Active Medications Generic Name Dose Route Start Last Admin Trade Name Freq PRN Reason Stop Dose Admin Acetaminophen 650 mg 06/15/21 09:59 06/16/21 15:58 Acetaminophen 325 Mg Tablet PO 650 mg Q4H PRN Administration Mild Pain (1-3) or Fever Dicyclomine HCl 20 mg 06/15/21 09:59 06/16/21 00:52 Dicyclomine Hcl Inj 20 Mg/2 Ml Vial IM 20 mg Q6H PRN Administration Abdominal Cramping Famotidine 20 mg 06/15/21 21:00 06/16/21 20:13 Famotidine 20 Mg/2 Ml Vial IV PUSH 20 mg Q12HR BRYANT Administration Lactated Ringer's 1,000 mls @ 75 mls/hr 06/15/21 14:30 06/17/21 01:08 Lr - Lactated Ringers Iv IV CONT Not Given .[id number] BRYANT Piperacillin/Tazobactam/Dextrose 3.375 gm in 50 mls @ 100 mls/hr 06/15/21 12:00 06/17/21 05:58 Zosyn 3.375 Gm/D5w 50ml Pm IVPB Infused Q6H BRYANT Infusion Methylprednisolone Sodium Succinate 40 mg 06/15/21 18:00 06/17/21 05:28 Methylprednisolone Sod Succ 40 Mg Vial IV PUSH 40 mg Q12H BRYANT Administration Morphine Sulfate 2 mg 06/15/21 17:00 06/17/21 05:24 Morphine Sulfate (*Crx) 2 Mg/Ml Inj IV PUSH 2 mg Q4H PRN Administration Pain Rated 7-10 Ondansetron HCl 4 mg 06/15/21 09:59 Ondansetron Inj 4 Mg/2 Ml Vial IV PUSH Q4H PRN Nausea Radiology Results: ITS Impressions Abdomen/Pelvis CT 06/15/21 10:36 IMPRESSION: 1. No significant interval change in segmental enterocolitis consistent with acute flare of reported Crohn's disease. This involves a segment of distal ileum and a short segment of the immediately adjacent sigmoid colon wit
[2021-06-17] MEDS: MORPHINE SULFATE (*CRX) 2 MG/ML INJ 3 MG IV PUSH (09:09)
[2021-06-17] MEDS: FAMOTIDINE 20 MG/2 ML VIAL IV PUSH ×2 (09:12→20:16)
[2021-06-17] MEDS: DICYCLOMINE HCL INJ 20 MG/2 ML VIAL IM (09:12)
[2021-06-17] MEDS: MESALAMINE 250 MG CAP CR 1000 MG PO ×4 (10:15→20:15)
--- NOTE | 2021-06-17 11:15 | PM.IMPN ---
Progress Note: A&P Assessment and Plan (1) Abdominal pain: Code(s): R10.9 - Unspecified abdominal pain Status: Acute (2) Crohn's colitis: Qualifiers: Digestive disease complication type: with abscess Qualified Code(s): K50.114 - Crohn's disease of large intestine with abscess Code(s): K50.10 - Crohn's disease of large intestine without complications Status: Acute (3) Chronic anemia: Code(s): D64.9 - Anemia, unspecified Status: Acute Additional Plan # acute Crohn's colitis used to be on MRI before. Insurance coverage was lost and hence not able to receive since past 2 months. Recently discharged for the same. CT abdomen repeat 06/15/2021 with no significant interval change and segmental enterocolitis. There is a short-segment of the immediately adjacent sigmoid colon with suggestion of an intervening developing enterocolic fistula. No abscess was noted. Start with Solu-Medrol IV 40 mg b.i.d. and Zosyn. GI consultation reviewed and appreciated the recommendations. Pain is better GI started him on clear liquid diet and will advance further as tolerated On Solu-Medrol and Zosyn which will be continued GI switch Solu-Medrol to prednisone today continue on Zosyn start on low residue diet today Morphine IV p.r.n. stays add [place] p.r.n. for pain control Add simethicone for gas pain continue Bentyl as ordered # possible developing enterocolic fistula: GI consultation reviewed will need colonoscopy as an outpatient basis # DVT prophylaxis SCDs # full code status Home when not requiring IV pain medication and tolerating his diet Subjective Date/time seen: 06/17/21 11:15 Interval history: Tolerated her liquids yesterday. Had abdominal cramping this morning but now feeling better. Wants to try low residue diet today. No nausea vomiting. No diarrhea no fever chills Review of Systems Review of Systems: All systems reviewed & are unremarkable except as noted in HPI and below Exam Narrative: General: Well-developed male in no acute distress HEENT: PERRL, EOMI. Sclerae anicteric. Tacky mucous membranes. Oropharynx clear. Neck: Supple. Respiratory: Lungs are clear to auscultation bilaterally. Cardiovascular: Regular rate and rhythm with S1-S2. Gastrointestinal: Abdomen is soft and nondistended, positive bowel sounds, nontender Skin: Warm and dry. No rash or lesions on limited exam. Extremities: No cyanosis, clubbing, or edema. Radial and pedal pulses intact. Neurological: Alert. Cranial nerves 2-12 are grossly intact. No gross focal deficits to casual conversation. Psychiatric: Pleasant and cooperative with normal mood and affect. Judgment and insight intact. Objective Data Vital Signs Vital Signs: Vital Signs - 24 hr 06/16/21 14:27 06/16/21 22:00 06/17/21 06:00 Temperature 98.2 F 97.6 F 97.6 F Pulse Rate 66 66 88 Respiratory Rate 14 18 14 Blood Pressure 124/84 121/58 L 119/71 Pulse Oximetry 100 99 100 Intake/Output Intake/Output: Intake & Output 06/14/21 06/15/21 06/16/21 06/17/21 23:59 23:59 23:59 23:59 Intake Total 1100 2870 550 Output Total 800 2200 1100 Balance 300 670 -550 Meds/Results Medications: Active Medications Generic Name Dose Route Start Last Admin Trade Name Freq PRN Reason Stop Dose Admin Acetaminophen 650 mg 06/15/21 09:59 06/16/21 15:58 Acetaminophen 325 Mg Tablet PO 650 mg Q4H PRN Administration Mild Pain (1-3) or Fever Hydrocodone Bitart/Acetaminophen 1 tab 06/17/21 10:55 Hydrocodone/Acetaminophen (*Crx) 5-325 Mg Tablet PO Q6H PRN Pain Rated 4-6 Dicyclomine HCl 20 mg 06/15/21 09:59 06/17/21 09:12 Dicyclomine Hcl Inj 20 Mg/2 Ml Vial IM 20 mg Q6H PRN Administration Abdominal Cramping Famotidine 20 mg 06/15/21 21:00 06/17/21 09:12 Famotidine 20 Mg/2 Ml Vial IV PUSH 20 mg Q12HR BRYANT Administration Lactated Ringer's 1,000 mls @ 75 mls/hr 06/15/21 14:30 06/17/21 0
[2021-06-17] MEDS: SIMETHICONE 80 MG TAB.CHEW PO ×3 (12:37→20:16)
[2021-06-17] MEDS: LACTATED RINGERS 1,000 ML 75 ML IV CONT (12:37)
[2021-06-17 14:00] VITALS: BP 119/66; PULSE 65; RESP 16; TEMP 36.7; O2SAT 100
[2021-06-17] MEDS: HYDROcodone/acetaminophen (*CRX) 5-325 MG TABLET 1 TAB PO (20:18)
[2021-06-17 22:00] VITALS: BP 129/71; PULSE 56; RESP 14; TEMP 36.4; O2SAT 100
[2021-06-17] MEDS: DICYCLOMINE HCL 10 MG CAPSULE 20 MG PO (22:43)
[2021-06-18] MEDS: LACTATED RINGERS 1,000 ML 75 ML IV CONT (04:41)
[2021-06-18 06:00] VITALS: BP 118/60; PULSE 59; RESP 14; TEMP 36.7; O2SAT 99
--- NOTE | 2021-06-18 07:19 | WPDGIPROGNO ---
Progress Note: A&P Assessment and Plan (1) Abdominal pain: Code(s): R10.9 - Unspecified abdominal pain Status: Acute Assessment and Plan: Abdominal pain appears resolved. Plan to maintain low residue diet. Discharge today if primary care service agrees. Will start tapering dose of steroids 40mg p.o. daily decrease by 5mg weekly. Continue Pentasa 4g p.o. daily. Patient to call office and start Humira when insurance issues are taken care of. (2) Crohn's disease: Code(s): K50.90 - Crohn's disease, unspecified, without complications Status: Acute Assessment and Plan: Patient known to have Crohn's disease. Will continue medications as outlined above. Low residue diet. Outpatient colonoscopy advised. Recent CT scan suggests there may be a fistula forming. Not evident on small-bowel follow-through recently. Hopefully we can do discharge today. Subjective Date/time seen: 06/18/21 07:19 Patient alert and comfortable this morning. Tolerating diet with no complaints. Review of Systems Review of Systems: All systems reviewed & are unremarkable except as noted in HPI and below Exam Narrative: Physical exam vital signs are stable. Patient is afebrile. HEENT exam reveals no icterus. Lungs are clear to auscultation and percussion. Heart is without murmur. Abdomen soft flat bowel sounds are present nontender no masses. Objective Data Vital Signs Vital Signs: Vital Signs - 24 hr 06/17/21 14:00 06/17/21 22:00 06/18/21 06:00 Temperature 98.0 F 97.5 F L 98.0 F Pulse Rate 65 56 L 59 L Respiratory Rate 16 14 14 Blood Pressure 119/66 129/71 118/60 Pulse Oximetry 100 100 99 Intake/Output Intake/Output: Intake & Output 06/15/21 06/16/21 06/17/21 06/18/21 23:59 23:59 23:59 23:59 Intake Total 1100 2870 2160 1490 Output Total 800 2200 1400 Balance 300 878 275 5139 Meds/Results Medications: Active Medications Generic Name Dose Route Start Last Admin Trade Name Freq PRN Reason Stop Dose Admin Acetaminophen 650 mg 06/15/21 09:59 06/16/21 15:58 Acetaminophen 325 Mg Tablet PO 650 mg Q4H PRN Administration Mild Pain (1-3) or Fever Hydrocodone Bitart/Acetaminophen 1 tab 06/17/21 10:55 06/17/21 20:18 Hydrocodone/Acetaminophen (*Crx) 5-325 Mg Tablet PO 1 tab Q6H PRN Administration Pain Rated 4-6 Dicyclomine HCl 20 mg 06/17/21 20:07 06/17/21 22:43 Dicyclomine Hcl 10 Mg Capsule PO 20 mg QID PRN Administration Abdominal Cramping Famotidine 20 mg 06/15/21 21:00 06/17/21 20:16 Famotidine 20 Mg/2 Ml Vial IV PUSH 20 mg Q12HR BRYANT Administration Lactated Ringer's 1,000 mls @ 75 mls/hr 06/15/21 14:30 06/18/21 04:41 Lr - Lactated Ringers Iv IV CONT 75 mls/hr .[id number] BRYANT Administration Piperacillin/Tazobactam/Dextrose 3.375 gm in 50 mls @ 100 mls/hr 06/15/21 12:00 06/18/21 05:56 Zosyn 3.375 Gm/D5w 50ml Pm IVPB 100 mls/hr Q6H BRYANT Administration Mesalamine 1,000 mg 06/17/21 09:00 06/17/21 20:15 Mesalamine 250 Mg Cap Cr PO 1,000 mg QID BRYANT Administration Morphine Sulfate 3 mg 06/17/21 08:46 06/17/21 09:09 Morphine Sulfate (*Crx) 2 Mg/Ml Inj IV PUSH 3 mg Q3HR PRN Administration Pain Rated 7-10 Ondansetron HCl 4 mg 06/15/21 09:59 Ondansetron Inj 4 Mg/2 Ml Vial IV PUSH Q4H PRN Nausea Prednisone 40 mg 06/18/21 08:00 Prednisone 20 Mg Tablet PO DAILY@0800 BRYANT Simethicone 80 mg 06/17/21 13:00 06/17/21 20:16 Simethicone 80 Mg Tab.Chew PO 80 mg QID BRYANT Administration Radiology Results: ITS Impressions Abdomen/Pelvis CT 06/15/21 10:36 IMPRESSION: 1. No significant interval change in segmental enterocolitis consistent with acute flare of reported Crohn's disease. This involves a segment of distal ileum and a short segment of the immediately adjacent sigmoid colon with suggestion of an intervening developing enterocolic fistula. 2. No abscess
--- NOTE | 2021-06-18 09:32 | PM.DS ---
DS: Admitting Diagnosis Discharge Date 06/18/21 Admitting Diagnosis Abd pain DS: Discharge Diagnosis Discharge Diagnosis (1) Crohn's colitis: Qualifiers: Digestive disease complication type: with abscess Qualified Code(s): K50.114 - Crohn's disease of large intestine with abscess Code(s): K50.10 - Crohn's disease of large intestine without complications Status: Acute Assessment and Plan: Patient is a 26-year-old man with a history of Crohn's disease, who had been on Humira but had an insurance issue and has been off for a few months, who presented to the emergency room with increased abdominal pain consistent with a Crohn's flare. The patient had just been admitted on 06/11/2021 and discharged on 06/14/2021, but presented back to emergency room on 06/15/2021 due to increased abdominal pain as well as some bright red blood in his stool. Initial labs showed elevated blood pressure 141/92, heart rate slightly bradycardic at 59, afebrile, normal oxygenation on room air. Initial labs showed leukocytosis at 11,300, normocytic anemia with a hemoglobin of 11, hematocrit 38%, normal neutrophil count, slight hyponatremia at 134, normal renal function, normal LFTs, normal lipase. Normal urinalysis. CT abdomen pelvis showed No significant interval change in segmental enterocolitis consistent with acute flare of reported Crohn's disease. This involves a segment of distal ileum and a short segment of the immediately adjacent sigmoid colon with suggestion of an intervening developing enterocolic fistula. No abscess. Patient was admitted into the hospital with IV antibiotics, IV Solu-Medrol, IV pain medications and consult to GI specialist. Patient has been doing well during this admission without any more pain at this time, stools have normalized. GI feels he is stable for discharge at this time to continue on oral prednisone taper, mesalamine q.i.d., continue on a low residual diet, and to call the office for follow-up and to hopefully get restarted on Humira soon. Patient will need to follow-up with an outpatient colonoscopy since his CT scan is suggesting he may have a fistula forming. Patient is aware of everything on discharge. He is stable at this time to continue his medications. Follow-up information given. Return to ER warnings given. The patient understands agrees the plan all questions answered. (2) Chronic anemia: Code(s): D64.9 - Anemia, unspecified Status: Acute DS: Summary Hospital Course Hospital Course: SEE ABOVE Status at Discharge Cognitive/behavioral status at discharge: Stable, improved. Time Spent with Patient Time attestation: Total time spent providing and/or coordinating discharge services: 39 Time spent: Greater than 30 minutes Exam Narrative: General: 26-year-old man sitting up in the chair on his phone. Appears comfortable. In no acute distress. Skin: No jaundice or cyanosis. Good skin turgor. Neck: Full range of motion. Supple. Respiratory: Lungs are clear to auscultation bilaterally. No bony chest wall tenderness. Cardiovascular: The heart has a regular rate and rhythm without murmur. Lower extremities: No lower extremity edema. Distal pulses are easily palpated. No calf tenderness to palpation. Gastrointestinal: The abdomen is soft, nontender and nondistended with active bowel sounds. Psychiatric: Lucid and oriented. Memory intact. Neurologic: No focal deficits. Speech is clear. No facial drooping. Discharge Plan Discharge Attending physician on discharge: Tara Hays Consulting providers: Jd Prasad Discharging Clinician: Concepcion Larios Anticipated Discharge Date/Time: 06/18/21 09:16 Patient Disposition: Home, Self-Care Activity: as tolerated Diet: low fiber Discharge Instructions: DALI Boykin
[2021-06-18] MEDS: MESALAMINE 250 MG CAP CR 1000 MG PO (09:36)
[2021-06-18] MEDS: predniSONE 20 MG TABLET 40 MG PO (09:36)
[2021-06-18] MEDS: FAMOTIDINE 20 MG/2 ML VIAL IV PUSH (09:36)
[2021-06-18] MEDS: SIMETHICONE 80 MG TAB.CHEW PO (09:36)
--- NOTE | 2021-06-18 15:36 | PC.NURSE ---
On 06/18/21, the student, [Della Jane ], provided care and completed [facility] documentation on this patient. I have reviewed the student's documentation and agree with the findings.
== END 2021-06-18 10:41 | disposition home or self-care (01) | DRG 386 ==
LOC: ANHED 08:26 → ANH2MED 11:45
PROVIDERS: Internal Medicine; Admitting Provider Internal Medicine; Emergency Provider Emergency Medicine; PCP Physician Assistant; Visit Provider Physician Assistant
DX: K50.113 Crohn's disease of large intestine with fistula (principal); E87.1 Hypo-osmolality and hyponatremia; D64.9 Anemia, unspecified; F90.9 Attention-deficit hyperactivity disorder, unspecified type; F41.9 Anxiety disorder, unspecified
CPT/HCPCS: 36415; 74177; 80053; 81003; 83690; 85025; 86140; 96361; 96365; 96366; 96372; 96375; 96376; 99285; A9270; G0378; J0500; J2270; J2543; J2920; J7120; J7512; Q9967